=== PATIENT | female | born 1935 | race Hispanic/Latino ===

== ENCOUNTER 2018-07-25 20:53 | Emergency (ER) | payer MEDICARE, OTHER ==
[~2018-07-25] VITALS: Ht 152.4 cm; Wt 63.5 kg
[~2018-07-25 20:53] MED LIST: ADULT LOW DOSE81 MG PO; ADVAIR 500/501 EA INH; ALBUTEROL2.5 MG/3 M INH; ARICEPT5 MG PO; CARBAMAZEPINE200 MG PO; CRESTOR10 MG PO; CYANOCOBAL1000 MCG/M IM; FORADIL12 MCG INH; GABAPENTIN300 MG PO; LEVOTHYROXINE50 MCG PO; NEXIUM40 MG PO; PULMICORT FLEXHA1 EA INH; SINGULAIR10 MG PO; SPIRIVA18 MCG INH; THEO-24300 MG PO
--- OUTSIDE RECORDS SUMMARY | 2018-07-25 20:58 | XMS REPORT | Continuity of Care Document ---
Author Author [facility] Interface Address Unknown Phone Unavailable Problems Problem Status Onset Date Classification Date Reported Comments Source ABD PAIN Active 03/01/2018 [facility] SOB, CHEST PAIN IN ADULT, EPIGASTRIC CIERA Active 03/01/2018 [facility] Discharge Diagnosis: Acute bronchitis, viral 04/20/2017 04/23/2017 [facility] COUGH Active 04/20/2017 [facility] Discharge Diagnosis: Bronchitis 01/01/2015 01/04/2015 [facility] Discharge Diagnosis: Appendicolith 01/01/2015 01/04/2015 [facility] Discharge Diagnosis: Gastritis 01/01/2015 01/04/2015 [facility] Discharge Diagnosis: Dehydration 01/01/2015 01/04/2015 [facility] ASTHMA / SOB Active 11/30/2012 [facility] ASTHMA, SOB, COPD EXAC Active 11/30/2012 [facility] SOB, ASTHMA Active 11/13/2012 [facility] SOB Active 09/21/2012 [facility] DYSPNEA Active 12/20/2010 [facility] ASTHMA, COPD Active 12/20/2010 [facility] 786.3 HEMOPTYSIS// 793.1 LESION OF LUNG // Active 06/16/2009 [facility] MRSA Active 04/27/2004 Problem 12/14/2012 [facility] 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 Problem 04/23/2017 [facility] Asthma Resolved Problem 12/14/2012 [facility] COPD - Chronic obstructive pulmonary disease Active Problem 12/14/2012 [facility] DM - Diabetes mellitus Active Problem 12/14/2012 [facility] Alzheimer's disease Active Problem 04/23/2017 [facility] Asthma Active Problem 04/23/2017 [facility] COPD - Chronic obstructive pulmonary disease Active Problem 04/23/2017 [facility] Diabetes mellitus Active Problem 04/23/2017 [facility] Diabetes Resolved Problem 04/23/2017 [facility] DM - Diabetes mellitus Active Problem 04/23/2017 [facility] Hypercholesterolemia Active Problem 04/23/2017 [facility] Hypertension Active Problem 04/23/2017 [facility] Blood clot Active Problem 01/04/2015 [facility] Diabetes mellitus Resolved Problem 12/14/2012 [facility] Hypercholesterolemia Resolved Problem 12/14/2012 [facility] Hypertension Active Problem 12/14/2012 [facility] ASTHMA NOS Active [facility] SHORTNESS OF BREATH Active [facility] CHEST PAIN, UNSPECIFIED Active [facility] EPIGASTRIC PAIN Active [facility] Medications Medication Details Route Status Patient Instructions Ordering Provider Order Date Source Oseltamivir 75 MG Oral Capsule [Tamiflu] 75 mg, PO, Q12H, X 5 day, # 10 cap, 0 Refill(s) Active 04/21/2017 [facility] Saline Flush 0.9% 10 mL, Route: IVP, Drug Form: INJ, Dosing Weight 60.909, kg, PRN, PRN Line Flush, Start date: 04/20/17 13:38:00 [employer], Duration: 30 day, Stop date: 05/20/17 13:37:00 CSTNotes: (Same as: BD Posiflush) Inactive 04/20/2017 [facility] Azithromycin 5 Day Dose Pack 250 mg oral tablet See Instructions, Take 2 tablets by mouth the first day then 1 tablet by mouth days 2-5., X 5 day, # 6 tab, 0 Refill(s)Special Instructions: Take 2 tablets by mouth the first day then 1 tablet by mouth days 2-5. Active 01/01/2015 [facility] Ondansetron 4 MG Disintegrating Tablet [Zofran] 4 mg=1 tab, PO, BID, PRN Nausea and Vomiting, Dissolve tab under tongue, X 5 day, # 10 tab, 0 Refill(s)Special Instructions: Dissolve tab under tongue Active 01/01/2015 [facility] Aluminum Hydroxide 80 MG/ML / Magnesium Hydroxide 80 MG/ML / Simethicone 8 MG/ML Oral Suspension [Maalox Max] 5 mL, PO, QID-Before Meals, # 150 mL, 0 Refill(s) No Longer Active 01/01/2015 [facility] Dicyclomine Hydrochloride 10 MG Oral Capsule [Bentyl] 10 mg=1 cap, PO, QID-Before Meals, # 14 cap, 0 Refill(s) Active 01/01/2015 [facility] Famotidine 20 MG Oral Tablet [Pepcid] 20 mg=1 tab, PO, BID, # 20 tab, 0 Refill(s) Active 01/01/2015 [facility] Albuterol 0.833 MG/ML / Ipratropium Crandall 0.167 MG/ML Inhalant Solution 3 mL, Route: NEB, Dosing Weight 60.909, kg, ONCE, STAT, Start date: 01/01/15 1:34:00, Stop date: 01/01/15 1:34:00 Inactive 01/01/2015 [facility] Sodium Chloride 0.154 MEQ/ML Injectable Solution 1,000 mL, 1,000 ml/hr, Infuse Over: 1 Hour, Route: IV, ONCE, Priority: STAT, Dosing Weight 60.909 kg, Start date: 01/01/15 1:26:00, Duration: 1 doses or times, Stop date: 01/01/15 1:26:00 Inactive 01/01/2015 [facility] GI cocktail 30 mL, Route: PO, Dosing Weight 60.909, kg, ONCE, STAT, Start date: 12/31/14 20:44:00, Stop date: 12/31/14 20:44:00 Inactive 01/01/2015 [facility] Zofran 4 mg, Route: IVP, Drug form: INJ, ONCE, Dosing Weight 60.909, kg, Priority: STAT, Start date: 12/31/14 20:43:00, Stop date: 12/31/14 20:43:00 Inactive 01/01/2015 [facility] Pepcid 20 mg, Route: IV, ONCE, Dosing Weight 60.909, kg, Start date: 12/31/14 20:38:00, Stop date: 12/31/14 20:38:00 Inactive 01/01/2015 [facility] Sodium Chloride 0.154 MEQ/ML Injectable Solution 1,000 mL, 1,000 ml/hr, Infuse Over: 1 hr, Route: IV, ONCE, Priority: STAT, Dosing Weight 60.909 kg, Start date: 12/31/14 20:36:00, Duration: 1 doses or times, Stop date: 12/31/14 20:36:00 Inactive 01/01/2015 [facility] predniSONE 10 mg, 1 tab, Route: PO, Drug form: TAB, Daily, Dosing Weight 60, kg, Start date: 12/13/12 9:00:00, Duration: 14 day, Stop date: 12/26/12 9:00:00 PO No Longer Active [facility] 12/13/2012 [facility] ciprofloxacin 250 mg, 1 tab, Route: PO, Drug form: TAB, [id number], Dosing Weight 60, kg, Start date: 12/12/12 18:00:00, Duration: 7 day, Stop date: 12/19/12 6:00:00 PO No Longer Active [facility] 12/12/2012 [facility] Cardizem 30 mg, 1 tab, Route: PO, Drug form: TAB, Q8H, Dosing Weight 60, kg, Start date: 12/12/12 16:00:00, Duration: 30 day, Stop date: 01/11/13 8:00:00 PO No Longer Active [facility] 12/12/2012 [facility] predniSONE 10 mg oral tablet 20 mg, 2 tab, PO, Daily, 15 tab, Substitution Allowed, TAB PO Active [facility] 12/12/2012 [facility] pantoprazole 40 mg oral enteric coated tablet 40 mg, 1 tab, PO, Daily, 30 tab, Substitution Allowed, ECTAB PO Active [facility] 12/12/2012 [facility] ciprofloxacin 250 mg oral tablet 250 mg, 1 tab, PO, [id number], 10 tab, Substitution Allowed, TAB PO Active [facility] 12/12/2012 [facility] DuoNeb inhalation solution 3 mL, INHALATION, QID, 120 vial, Substitution Allowed, Maintenance, SOLN INHALATION Active [facility] 12/12/2012 [facility] Remove - lidocaine topical patch 1 patch, Route: MISC, Bedtime, Drug form: ERFILM, Start date: 12/11/12 21:00:00, Duration: 30 day, Stop date: 01/09/13 21:00:00 MISC No Longer Active [facility] 12/12/2012 [facility] Crestor 10 mg, 1 tab, Route: PO, Drug form: TAB, Bedtime, Dosing Weight 60, kg, Start date: 12/11/12 21:00:00, Duration: 30 day, Stop date: 01/09/13 21:00:00 PO No Longer Active [facility] 12/12/2012 [facility] Singulair 10 mg, Route: PO, Drug form: TAB, Bedtime, Dosing Weight 60, kg, Start date: 12/11/12 21:00:00, Duration: 30 day, Stop date: 01/09/13 21:00:00 PO No Longer Active [facility] 12/12/2012 [facility] donepezil 10 mg, 2 tab, Route: PO, Drug form: TAB, Bedtime, Dosing Weight 60, kg, Start date: 08/27/13 21:00:00, Duration: 30 day, Stop date: 01/09/13 21:00:00 PO No Longer Active [facility] 12/12/2012 [facility] Protonix 40 mg, 1 tab, Route: PO, Drug form: ECTAB, BID, Dosing Weight 60, kg, Start date: 12/11/12 17:00:00, Duration: 30 day, Stop date: 01/10/13 9:00:00 PO No Longer Active [facility] 12/11/2012 [facility] benzocaine-menthol topical 1 lozenge, Route: MUCOUS MEM, Drug Form: MANJINDER, Q2H, PRN Sore Throat, Start date: 12/11/12 16:56:00, Duration: 30 day, Stop date: 01/10/13 16:55:00 MUCOUS MEM No Longer Active [facility] 12/11/2012 [facility] Cepacol Lozenge 1 lozenge, Route: MUCOUS MEM, Q2H, Drug form: MANJINDER, PRN Sore Throat, Start date: 12/11/12 16:53:00, Duration: 30 day, Stop date: 01/10/13 16:52:00 MUCOUS MEM No Longer Active [facility] 12/11/2012 [facility] carbamazepine 200 mg, 1 tab, Route: PO, Drug form: TAB, QNoon, Dosing Weight 60, kg, Start date: 12/11/12 12:00:00, Duration: 30 day, Stop date: 01/09/13 12:00:00 PO No Longer Active [facility] 12/11/2012 [facility] Lidoderm 5% topical film (patch) 1 patch, Route: TOP, Daily, Drug form: FILM, Start date: 12/11/12 9:00:00, Duration: 30 day, Stop date: 01/09/13 9:00:00, Remove after 12 hoursRemove after 12 hours TOP No Longer Active [facility] 12/11/2012 [facility] Spiriva 18 mcg inhalation capsule 18 microgram, 1 ea, Route: INHALATION, Drug form: CAP, Daily, Dosing Weight 60, kg, Start date: 12/11/12 9:00:00, Duration: 30 day, Stop date: 01/09/13 9:00:00 INHALATION No Longer Active [facility] 12/11/2012 [facility] Fam-24 300 mg, 1 cap, Route: PO, Drug form: ERCAP, BID, Dosing Weight 60, kg, Start date: 12/11/12 9:00:00, Duration: 30 day, Stop date: 01/09/13 17:00:00 PO No Longer Active [facility] 12/11/2012 [facility] Namenda 10 mg, 2 tab, Route: PO, Drug form: TAB, BID, Dosing Weight 60, kg, Start date: 12/11/12 9:00:00, Duration: 30 day, Stop date: 01/09/13 17:00:00 PO No Longer Active [facility] 12/11/2012 [facility] levothyroxine 0.05 mg, 1 tab, Route: PO, Drug form: TAB, [id number], Dosing Weight 60, kg, Start date: 12/11/12 9:00:00, Duration: 30 day, Stop date: 01/10/13 6:30:00 PO No Longer Active [facility] 12/11/2012 [facility] gabapentin 300 mg oral capsule 300 mg, 1 cap, Route: PO, Drug form: CAP, BID, Dosing Weight 60, kg, Start date: 12/11/12 9:00:00, Duration: 30 day, Stop date: 01/09/13 17:00:00 PO No Longer Active [facility] 12/11/2012 [facility] Foradil Aerolizer 0.5 mg, Route: INHALATION, Drug Form: CAP, Dosing Weight 60, kg, Q12H, Start date: 12/11/12 9:00:00, Duration: 30 day, Stop date: 01/09/13 21:00:00 INHALATION No Longer Active [facility] 12/11/2012 [facility] Advair Diskus 500 mcg-50 mcg inhalation powder 1 puff, Route: INHALATION, Drug Form: AERO, Dosing Weight 60, kg, BID, Start date: 12/11/12 9:00:00, Duration: 30 day, Stop date: 01/09/13 17:00:00 INHALATION No Longer Active [facility] 12/11/2012 [facility] carbamazepine 400 mg, 2 tab, Route: PO, Drug form: TAB, BID, Dosing Weight 60, kg, Start date: 12/11/12 9:00:00, Duration: 30 day, Stop date: 01/09/13 21:00:00 PO No Longer Active [facility] 12/11/2012 [facility] Pulmicort Flexhaler 2 puff, Route: INHALATION, Drug Form: PWDR, Dosing Weight 60, kg, BID, Start date: 12/11/12 9:00:00, Duration: 30 day, Stop date: 01/09/13 17:00:00 INHALATION No Longer Active [facility] 12/11/2012 [facility] aspirin 81 mg tablet, enteric coated 81 mg, 1 tab, Route: PO, Drug form: ECTAB, Daily, Dosing Weight 60, kg, Start date: 12/11/12 9:00:00, Duration: 30 day, Stop date: 01/09/13 9:00:00 PO No Longer Active [facility] 12/11/2012 [facility] Xopenex HFA 2 puff, Route: INHALATION, Drug Form: AERO/A, Dosing Weight 60, kg, Q4H, PRN, Start date: 12/11/12 8:52:00, Duration: 30 day, Stop date: 01/10/13 8:51:00, wheezes INHALATION No Longer Active [facility] 12/11/2012 [facility] Proventil HFA 90 mcg/inh inhalation aerosol with adapter 2 puff, Route: INHALATION, Drug Form: AERO/A, Dosing Weight 60, kg, RQID, PRN Wheezing, Start date: 12/11/12 8:52:00, Duration: 30 day, Stop date: 01/10/13 8:51:00, whhezes INHALATION No Longer Active [facility] 12/11/2012 [facility] insulin aspart 10 unit, 0.1 mL, Route: SUB-Q, Drug form: SOLN, ONCE, Dosing Weight 60, kg, Start date: 12/10/12 17:25:00, Stop date: 12/10/12 17:25:00 SUB-Q No Longer Active [facility] 12/10/2012 [facility] lactulose 10 g/15 mL oral syrup 10 gm, 15 mL, Route: PO, Drug Form: SYRP, Dosing Weight 60, kg, TID, Start date: 12/10/12 13:00:00, Stop date: 12/12/12 9:00:00 PO No Longer Active [facility] 12/10/2012 [facility] Sodium Chloride 0.9% IV 1,000 mL 1,000 mL, Rate: 100 ml/hr, Infuse over: 10 hr, Route: IV, Dosing Weight 60 kg, Total Volume: 1,000, Start date: 12/10/12 10:19:00, Duration: 1 doses or times, Stop date: 12/10/12 20:18:00 IV No Longer Active [facility] 12/10/2012 [facility] methylPREDNISolone SODium SUCCinate 40 mg, 1 mL, Route: IVP, Drug form: INJ, Daily, Dosing Weight 60, kg, Start date: 12/10/12 9:00:00, Duration: 30 day, Stop date: 01/08/13 9:00:00 IVP No Longer Active [facility] 12/10/2012 [facility] Sodium Chloride 0.9% IV IV, 250 ml/hr, ONCE, Start date: 12/10/12 6:55:00, 250 ml IV No Longer Active [facility] 12/10/2012 [facility] lisinopril 20 mg, 1 tab, Route: PO, Drug form: TAB, Daily, Dosing Weight 60, kg, Start date: 12/09/12 9:00:00, Duration: 30 day, Stop date: 01/07/13 9:00:00 PO No Longer Active [facility] 12/09/2012 [facility] Cardizem CD 120 mg, 1 cap, Route: PO, Drug form: ERCAP, Daily, Dosing Weight 60, kg, Start date: 12/08/12 12:25:00, Duration: 30 day, Stop date: 01/07/13 9:00:00 PO No Longer Active [facility] 12/08/2012 [facility] methylPREDNISolone SODium SUCCinate 40 mg, 1 mL, Route: IVP, Drug form: INJ, Q12H, Dosing Weight 60, kg, Start date: 12/07/12 21:00:00, Duration: 30 day, Stop date: 01/06/13 9:00:00 IVP No Longer Active [facility] 12/08/2012 [facility] lisinopril 20 mg, 1 tab, Route: PO, Drug form: TAB, BID, Dosing Weight 60, kg, Start date: 12/07/12 21:00:00, Duration: 30 day, Stop date: 01/06/13 9:00:00 PO No Longer Active [facility] 12/08/2012 [facility] nitroglycerin 0.4 mg sublingual tablet 0.4 mg, 1 tab, Route: SL, Drug form: TAB, Q5Min, PRN Chest Pain, Start date: 12/07/12 20:47:00, Duration: 30 day, Stop date: 01/06/13 20:46:00 SL No Longer Active [facility] 12/08/2012 [facility] atropine 0.5 mg, 5 mL, Route: IVP, Drug form: INJ, PRN, PRN Bradycardia, Start date: 12/07/12 20:46:00, Duration: 30 day, Stop date: 01/06/13 20:45:00 IVP No Longer Active [facility] 12/08/2012 [facility] Protonix 40 mg, 1 tab, Route: PO, Drug form: ECTAB, Before Dinner, Dosing Weight 60, kg, Start date: 12/07/12 16:30:00, Duration: 30 day, Stop date: 01/05/13 16:30:00 PO No Longer Active [facility] 12/07/2012 [facility] Tears Naturale 1 drp, Route: Each Affected Eye, TID, Drug form: SOLN, Start date: 12/07/12 13:00:00, Duration: 30 day, Stop date: 01/06/13 9:00:00 Each Affected Eye No Longer Active [facility] 12/07/2012 [facility] nystatin 100,000 units/mL oral suspension 500,000 unit, 5 mL, Route: S&SPIT, Drug form: SUSP, TID, Dosing Weight 60, kg, Start date: 12/06/12 13:00:00, Duration: 7 day, Stop date: 12/13/12 9:00:00 S&SPIT No Longer Active [facility] 12/06/2012 [facility] Tylenol 650 mg, 2 tab, Route: PO, Drug form: TAB, Q4H, Dosing Weight 60, kg, PRN Fever, Start date: 12/06/12 11:36:00, Duration: 30 day, Stop date: 01/05/13 11:35:00 PO No Longer Active [facility] 12/06/2012 [facility] Spiriva 18 mcg inhalation capsule 1 ea, Route: INHALATION, Drug form: CAP, Daily, Dosing Weight 60, kg, Start date: 12/06/12 9:00:00, Duration: 30 day, Stop date: 01/04/13 9:00:00 INHALATION No Longer Active [facility] 12/06/2012 [facility] methylPREDNISolone 60 mg, 0.96 mL, Route: IV, Drug form: INJ, Q12H, Start date: 12/05/12 21:00:00, Duration: 30 day, Stop date: 01/04/13 9:00:00 IV No Longer Active [facility] 12/06/2012 [facility] lisinopril 10 mg, 1 tab, Route: PO, Drug form: TAB, BID, Dosing Weight 60, kg, Start date: 12/05/12 21:00:00, Duration: 30 day, Stop date: 01/04/13 9:00:00 PO No Longer Active [facility] 12/06/2012 [facility] Advair Diskus 500 mcg-50 mcg inhalation powder 1 inhalation, Route: INHALER, Drug Form: AERO, Dosing Weight 60, kg, BID, Start date: 12/05/12 21:00:00, Duration: 30 day, Stop date: 01/04/13 9:00:00 INHALER No Longer Active [facility] 12/06/2012 [facility] Advair Diskus 250 mcg-50 mcg inhalation powder 1 inhalation, Route: INHALER, Drug Form: AERO, Dosing Weight 60, kg, BID, Start date: 12/05/12 17:00:00, Duration: 30 day, Stop date: 01/04/13 9:00:00 INHALER No Longer Active [facility] 12/05/2012 [facility] aspirin 81 mg tablet, enteric coated 81 mg, 1 tab, Route: PO, Drug form: CHEWTAB, Daily, Dosing Weight 60, kg, Start date: 12/05/12 9:00:00, Duration: 30 day, Stop date: 01/03/13 9:00:00 PO No Longer Active [facility] 12/05/2012 [facility] 1/2 NS 1,000 mL 1,000 mL, Rate: 50 ml/hr, Infuse over: 20 hr, Route: IV, Dosing Weight 60 kg, Total Volume: 1,000, Start date: 12/04/12 9:09:00, Duration: 30 day, Stop date: 01/03/13 9:08:00 IV No Longer Active [facility] 12/04/2012 [facility] insulin aspart 5 unit, 0.05 mL, Route: SUB-Q, Drug form: SOLN, TID-Before Meals, Dosing Weight 60, kg, PRN Blood Glucose Results, Start date: 12/04/12 9:07:00, Duration: 30 day, Stop date: 01/03/13 9:06:00 SUB-Q No Longer Active [facility] 12/04/2012 [facility] Dextrose 50% Syringe 25 gm, 50 mL, Route: IVP, Drug Form: INJ, Dosing Weight 60, kg, PRN, PRN Blood Glucose Results, Start date: 12/04/12 9:07:00, Duration: 30 day, Stop date: 01/03/13 9:06:00 IVP No Longer Active [facility] 12/04/2012 [facility] glucagon 1 mg, Route: IM, Drug form: PDR/INJ, PRN, Dosing Weight 60, kg, PRN Blood Glucose Results, Start date: 12/04/12 9:07:00, Duration: 30 day, Stop date: 01/03/13 9:06:00 IM No Longer Active [facility] 12/04/2012 [facility] lisinopril 5 mg, 1 tab, Route: PO, Drug form: TAB, BID, Dosing Weight 60, kg, Start date: 12/03/12 17:00:00, Duration: 30 day, Stop date: 01/02/13 9:00:00 PO No Longer Active [facility] 12/03/2012 [facility] Neurontin 300 mg, 1 cap, Route: NG, Drug form: CAP, TID, Start date: 12/03/12 13:00:00, Duration: 30 day, Stop date: 01/02/13 9:00:00 NG No Longer Active [facility] 12/03/2012 [facility] morphine Sulfate 2 mg, 1 mL, Route: IV, Drug form: INJ, Q2H, Dosing Weight 60, kg, PRN as needed for pain, Start date: 12/03/12 11:45:00, Duration: 30 day, Stop date: 01/02/13 11:44:00 IV No Longer Active [facility] 12/03/2012 [facility] morphine Sulfate 2 mg, 1 mL, Route: IV, Drug form: INJ, Q2H, Dosing Weight 60, kg, Start date: 12/03/12 10:00:00, Duration: 30 day, Stop date: 01/02/13 8:00:00 IV No Longer Active [facility] 12/03/2012 [facility] lisinopril 5 mg, 1 tab, Route: PO, Drug form: TAB, Daily, Dosing Weight 60, kg, Start date: 12/03/12 9:00:00, Duration: 30 day, Stop date: 01/01/13 9:00:00 PO No Longer Active [facility] 12/03/2012 [facility] Haldol 0.5 mg, 1 tab, Route: PO, Drug form: TAB, QID, Dosing Weight 60, kg, PRN Agitation, Start date: 12/03/12 8:14:00, Duration: 30 day, Stop date: 01/02/13 8:13:00 PO No Longer Active [facility] 12/03/2012 [facility] Stromectol 12 mg, 4 tab, Route: PO, Drug form: TAB, [id number], Start date: 12/02/12 16:00:00, Duration: 2 day, Stop date: 12/03/12 16:00:00 PO No Longer Active [facility] 12/02/2012 [facility] Ativan 2 mg, 1 mL, Route: IV, Drug form: INJ, Q4H, PRN Anxiety, Start date: 12/02/12 15:02:00, Duration: 30 day, Stop date: 01/01/13 15:01:00 IV No Longer Active [facility] 12/02/2012 [facility] Ativan 1 mg, 0.5 mL, Route: IV, Drug form: INJ, Q4H, PRN Anxiety, Start date: 12/02/12 15:00:00, Duration: 30 day, Stop date: 01/01/13 14:59:00 IV No Longer Active [facility] 12/02/2012 [facility] Lasix 60 mg, 6 mL, Route: IV, Drug form: INJ, ONCE, Start date: 12/02/12 14:59:00, Stop date: 12/02/12 14:59:00 IV No Longer Active [facility] 12/02/2012 [facility] D5W 1/2NS + KCL 20mEq/L 1000ml (Premix) 1,000 mL 1,000 mL, Rate: 50 ml/hr, Infuse over: 20 hr, Route: IV, Dosing Weight 60 kg, Total Volume: 1,000, Start date: 12/02/12 14:45:00, Duration: 30 day, Stop date: 01/01/13 14:44:00 IV No Longer Active [facility] 12/02/2012 [facility] methylPREDNISolone 60 mg, 1.5 mL, Route: IV, Drug form: INJ, Q8Hnow, Start date: 12/01/12 20:00:00, Duration: 30 day, Stop date: 12/31/12 12:00:00 IV No Longer Active [facility] 12/02/2012 [facility] pneumococcal 23-valent vaccine 0.5 ml, Route: IM, Drug Form: INJ, Daily, Start date: 12/01/12 9:00:00, Duration: 1 doses or times, Stop date: 12/01/12 9:00:00 IM No Longer Active [facility] 12/01/2012 [facility] Pulmicort Respules 1 mg/2 mL inhalation suspension 0.5 mg, 2 mL, Route: NEB, Drug form: SOLN, RDaily, Dosing Weight 60, kg, Start date: 12/01/12 8:00:00, Duration: 30 day, Stop date: 12/30/12 8:00:00 NEB No Longer Active [facility] 12/01/2012 [facility] Singulair 10 mg, 1 tab, Route: PO, Drug form: TAB, Bedtime, Dosing Weight 60, kg, Start date: 11/30/12 21:00:00, Duration: 30 day, Stop date: 12/29/12 21:00:00 PO No Longer Active [facility] 12/01/2012 [facility] Protonix 40 mg, Route: IVP, Drug form: INJ, Daily, Dosing Weight 60, kg, Patient is NPO, Start date: 11/30/12 21:00:00, Duration: 30 day, Stop date: 12/29/12 21:00:00 IVP No Longer Active [facility] 12/01/2012 [facility] famotidine 20 mg, Route: IVP, Drug form: INJ, Q12H, Dosing Weight 60, kg, Start date: 11/30/12 21:00:00, Duration: 30 day, Stop date: 12/30/12 9:00:00 IVP No Longer Active [facility] 12/01/2012 [facility] fentanyl 1,250 microgram + Sodium Chloride 0.9% (titrate) 250 mL 250 mL, Rate: Titrate., Dosing Weight 60, kg, Route: IV, Total Volume: 250, Duration: 30 day, Stop date: 12/30/12 20:25:00, Replace Every: 24 hr IV No Longer Active [facility] 12/01/2012 [facility] propofol 10 mg/ml (titrate) 100 mL 100 mL, Rate: 10 mcg/kg/min.Titrate to maintain goal RASS score., Dosing Weight 60, kg, Route: IV, Total Volume: 100, Start date: 11/30/12 20:20:00, Duration: 30 day, Stop date: 12/30/12 20:19:00, Replace Every: 24 hr IV No Longer Active [facility] 12/01/2012 [facility] methylPREDNISolone 40 mg, 1 mL, Route: IV, Drug form: INJ, ONCE, Start date: 11/30/12 20:00:00, Stop date: 11/30/12 20:00:00 IV No Longer Active [facility] 12/01/2012 [facility] magnesium sulfate 2 gm, 50 mL, Route: IVPB, Drug form: INJ, ONCE, Dosing Weight 60, kg, Total dose=2 gm, Start date: 11/30/12 19:36:00, Stop date: 11/30/12 19:36:00 IVPB No Longer Active [facility] 12/01/2012 [facility] DuoNeb inhalation solution 3 mL, Route: INHALATION, Drug Form: SOLN, Dosing Weight 60, kg, RQ4H, Start date: 11/30/12 19:00:00, Duration: 30 day, Stop date: 12/30/12 15:00:00 INHALATION No Longer Active [facility] 12/01/2012 [facility] albuterol 0.083% inhalation solution 9.96 mg, 12 mL, Route: INHALATION, Drug form: SOLN, ONCE, Dosing Weight 60, kg, Start date: 11/30/12 18:52:00, Stop date: 11/30/12 18:52:00 INHALATION No Longer Active [facility] 11/30/2012 [facility] DuoNeb inhalation solution 3 ml, Route: INHALATION, Drug Form: SOLN, Dosing Weight 60, kg, PRN, PRN Respiratory Protocol, Start date: 11/30/12 18:51:00, Duration: 30 day, Stop date: 12/30/12 18:50:00 INHALATION No Longer Active [facility] 11/30/2012 [facility] Levaquin 750 mg, 150 mL, Route: IVPB, Drug form: SOLN, [id number], Dosing Weight 60, kg, Start date: 11/30/12 18:00:00, Duration: 30 day, Stop date: 12/29/12 18:00:00 IVPB No Longer Active [facility] 11/30/2012 [facility] SoluMedrol 40 mg, 1 mL, Route: IVP, Drug form: INJ, Q6H, Dosing Weight 60, kg, Start date: 11/30/12 18:00:00, Duration: 30 day, Stop date: 12/30/12 12:00:00 IVP No Longer Active [facility] 11/30/2012 [facility] Sodium Chloride 0.9% IV 1,000 mL 1,000 mL, Rate: 100 ml/hr, Infuse over: 10 hr, Route: IV, Dosing Weight 60 kg, Total Volume: 1,000, Start date: 11/30/12 17:47:00, Duration: 30 day, Stop date: 12/30/12 17:46:00 IV No Longer Active [facility] 11/30/2012 [facility] Peridex 0.12% topical liquid 15 ml, Route: S&SPIT, BID, Drug form: LIQ, Start date: 11/30/12 17:00:00, Duration: 30 day, Stop date: 12/30/12 9:00:00 S&SPIT No Longer Active [facility] 11/30/2012 [facility] Versed 50 mg in NS 50 ml (titrate) IV 50 mg 50 mg, 50 mL, Rate: Titrate as directed (RASS score -2), Dosing Weight 60, kg, Route: IV, Total Volume: 50 ml, Duration: 30 day, Stop date: 12/30/12 15:59:00, Replace Every: 24 hr IV No Longer Active [facility] 11/30/2012 [facility] Lovenox 40 mg, 0.4 mL, Route: SUB-Q, Drug form: INJ, [id number], Dosing Weight 60, kg, Start date: 11/30/12 16:00:00, Duration: 30 day, Stop date: 12/29/12 16:00:00 SUB-Q No Longer Active [facility] 11/30/2012 [facility] [facility] Protonix 40 mg, Route: PO, Daily, Dosing Weight 60, kg, Priority: NOW, Start date: 11/30/12 15:59:00, Duration: 30 day, Stop date: 12/30/12 9:00:00 PO No Longer Active [facility] 11/30/2012 [facility] magnesium sulfate 1 gm, 50 mL, Route: IVPB, Drug form: INJ, ONCE, Dosing Weight 60, kg, Total dose=2 gm, Start date: 11/30/12 15:57:00, Duration: 1 doses or times, Stop date: 11/30/12 15:57:00 IVPB No Longer Active [facility] 11/30/2012 [facility] Sodium Chloride 0.9% (Bolus) IV 1000 mL 1,000 mL, Rate: 1,000 ml/hr, Infuse over: 1 hr, Route: IV, Dosing Weight 60 kg, Total Volume: 1,000, Priority: STAT, Start date: 11/30/12 15:57:00, Duration: 1 doses or times, Stop date: 11/30/12 16:56:00, Bolus DoseBolus Dose IV No Longer Active [facility] 11/30/2012 [facility] Versed 2 mg, Route: IVP, ONCE, Dosing Weight 60, kg, Start date: 11/30/12 15:54:00, Stop date: 11/30/12 15:54:00 IVP No Longer Active [facility] 11/30/2012 [facility] fentanyl 1,250 microgram + Sodium Chloride 0.9% (titrate) 250 mL 250 mL, Rate: Titrate, Dosing Weight 60, kg, Route: IV, Total Volume: 250, Duration: 30 day, Stop date: 12/30/12 14:45:00, Replace Every: 24 hr IV No Longer Active [facility] 11/30/2012 [facility] Ativan 0.5 mg, Route: IV, ONCE, Dosing Weight 60, kg, Start date: 11/30/12 14:03:00, Stop date: 11/30/12 14:03:00 IV No Longer Active [facility] 11/30/2012 [facility] Singulair 10 mg oral tablet 10 mg, 1 tab, PO, Bedtime, 30 tab, Substitution Allowed, TAB PO Active [facility] 11/30/2012 [facility] donepezil 10 mg oral tablet 10 mg, 1 tab, PO, Bedtime, 30 tab, Substitution Allowed, TAB PO Active [facility] 11/30/2012 [facility] Namenda 10 mg oral tablet 10 mg, 1 tab, PO, BID, 60 tab, Substitution Allowed, TAB PO Active [facility] 11/30/2012 [facility] propofol 10 mg/ml (titrate) 1,000 mg IV, Start date: 11/30/12 13:19:00, Duration: 30, 100 ml, 60 IV No Longer Active [facility] 11/30/2012 [facility] fentanyl 1,250 microgram IV, Start date: 11/30/12 13:18:00, Duration: 30, 250 ml, 60 IV No Longer Active [facility] 11/30/2012 [facility] fentanyl 1,250 microgram + Sodium Chloride 0.9% (titrate) 250 mL 250 mL, Rate: Titrate to RASS -2, Dosing Weight 60, kg, Route: IV, Total Volume: 250, Duration: 30 day, Stop date: 12/30/12 12:59:00, Replace Every: 24 hr IV No Longer Active [facility] 11/30/2012 [facility] etomidate 20 mg, Route: IVP, ONCE, Dosing Weight 60, kg, Priority: STAT, Start date: 11/30/12 12:58:00, Stop date: 11/30/12 12:58:00 IVP No Longer Active [facility] 11/30/2012 [facility] succinylcholine 100 mg, Route: IVP, ONCE, Dosing Weight 60, kg, Priority: STAT, Start date: 11/30/12 12:58:00, Stop date: 11/30/12 12:58:00 IVP No Longer Active [facility] 11/30/2012 [facility] Levaquin 750 mg, 150 mL, Route: IV, Drug form: SOLN, ONCE, Dosing Weight 60, kg, Start date: 11/30/12 12:52:00, Stop date: 11/30/12 12:52:00 IV No Longer Active I[facility] 11/30/2012 [facility] methylPREDNISolone SODium SUCCinate 125 mg, Route: IVP, ONCE, Dosing Weight 60, kg, Priority: STAT, Start date: 11/30/12 12:04:00, Stop date: 11/30/12 12:04:00 IVP No Longer Active [facility] 11/30/2012 [facility] Saline Flush 0.9% 5 mL, Route: IVP, Drug Form: INJ, Dosing Weight 60, kg, PRN, PRN Line Flush, Start date: 11/30/12 12:04:00, Duration: 30 day, Stop date: 12/30/12 12:03:00 IVP No Longer Active [facility] 11/30/2012 [facility] DuoNeb inhalation solution 3 ml, Route: INHALATION, Drug Form: SOLN, Dosing Weight 60, kg, ONCE, PRN Respiratory Protocol, Start date: 11/30/12 11:54:00, Stop date: 12/30/12 11:53:00 INHALATION No Longer Active [facility] 11/30/2012 [facility] predniSONE 20 mg oral tablet 40 mg, 2 tab, PO, Daily, Take 3 tablets for 60 mg dose, 10 tab, Substitution AllowedTake 3 tablets for 60 mg dose PO Active [facility] 11/14/2012 [facility] Proventil HFA 90 mcg/inh inhalation aerosol with adapter 2 puff, INHALATION, QID, PRN, 25 gm, for wheezing, Substitution Allowed, Maintenance, AERO INHALATION Active [facility] 11/14/2012 [facility] Xopenex 1.25 mg, Route: NEB, ONCE, Dosing Weight 60.909, kg, Start date: 11/13/12 20:44:00, Stop date: 11/13/12 20:44:00 NEB No Longer Active [facility] 11/14/2012 [facility] DuoNeb inhalation solution 3 ml, Route: INHALATION, Drug Form: SOLN, Dosing Weight 60.909, kg, PRN, PRN Respiratory Protocol, Start date: 11/13/12 20:44:00, Duration: 30 day, Stop date: 12/13/12 20:43:00 INHALATION No Longer Active [facility] 11/14/2012 [facility] albuterol-ipratropium 2.5-0.5 mg inhalation solution 6 mL, Route: NEB, Drug Form: SOLN, Dosing Weight 60.909, kg, ONCE, STAT, Start date: 11/13/12 19:46:00, Stop date: 11/13/12 19:46:00 NEB No Longer Active [facility] 11/14/2012 [facility] methylPREDNISolone SODium SUCCinate 125 mg, Route: IVP, ONCE, Dosing Weight 60.909, kg, Priority: STAT, Start date: 11/13/12 19:46:00, Stop date: 11/13/12 19:46:00 IVP No Longer Active [facility] 11/14/2012 [facility] Saline Flush 0.9% 5 mL, Route: IVP, Drug Form: INJ, Dosing Weight 60.909, kg, PRN, PRN Line Flush, Start date: 11/13/12 19:46:00, Duration: 30 day, Stop date: 12/13/12 19:45:00 IVP No Longer Active [facility] 11/14/2012 [facility] albuterol 90 mcg/inh inhalation aerosol 2 puffs, INHALATION, QID, PRN, 1 unit, wheezing, Substitution Allowed, Maintenance INHALATION Active [facility] 09/21/2012 [facility] predniSONE 20 mg oral tablet 60 mg, 3 tab, PO, Daily, Take 3 tablets for 60 mg dose, 15 tab, Substitution AllowedTake 3 tablets for 60 mg dose PO Active [facility] 09/21/2012 [facility] albuterol 0.083% inhalation solution 2.49 mg, Route: NEB, Drug form: SOLN, ONCE, Dosing Weight 60, kg, Priority: STAT, Start date: 09/21/12 9:55:00, Stop date: 09/21/12 9:55:00 NEB No Longer Active [facility] 09/21/2012 [facility] DuoNeb inhalation solution 3 ml, Route: INHALATION, Drug Form: SOLN, Dosing Weight 60, kg, PRN, PRN Respiratory Protocol, Start date: 09/21/12 9:54:00, Duration: 30 day, Stop date: 10/21/12 9:53:00 INHALATION No Longer Active [facility] 09/21/2012 [facility] methylPREDNISolone 125 mg, Route: IVP, ONCE, Dosing Weight 60, kg, Priority: STAT, Start date: 09/21/12 8:52:00, Stop date: 09/21/12 8:52:00 IVP No Longer Active [facility] 09/21/2012 [facility] DuoNeb inhalation solution 3 ml, Route: INHALATION, Drug Form: SOLN, Dosing Weight 60, kg, PRN, PRN Respiratory Protocol, Start date: 09/21/12 8:52:00, Duration: 30 day, Stop date: 10/21/12 8:51:00 INHALATION No Longer Active [facility] 09/21/2012 [facility] DuoNeb inhalation solution 3 ml, Route: INHALATION, Drug Form: SOLN, Dosing Weight 60, kg, PRN, PRN Respiratory Protocol, Start date: 09/21/12 8:31:00, Duration: 30 day, Stop date: 10/21/12 8:30:00 INHALATION No Longer Active [facility] 09/21/2012 [facility] Allergies, Adverse Reactions, Alerts Substance Category Reaction Severity Reaction type Status Date Reported Comments Source Immunizations Immunization Date Given Site Status Last Updated Comments Source pneumococcal 23-valent vaccine 12/01/2012 Right deltoid completed [facility] pneumococcal 23-valent vaccine 12/01/2012 completed [facility] Results Order Name Results Value Reference Range Date Interpretation Comments Source Abdomen complete US Abdomen complete US Clinical Indication: - PAtient with ongoing abdominal pain, please evaluate; Comparison: Abdominal pelvic CT on 12/31/2014. TECHNIQUE: Grayscale and limited color sonographic evaluation of the abdomen was performed with standard technique. FINDINGS: LIVER: The visualized liver shows normal contour, size, and morphology with normal parenchymal echo texture. The liver measures 14 cm. Limited visualized portal vein is grossly patent. BILE DUCTS: The intrahepatic and extrahepatic bile ducts are not dilated with the common bile duct measuring 3.8 mm. The distal common bile duct is not well seen. GALLBLADDER: There are no definite gallstones, gallbladder sludge, pericholecystic fluid or wall thickening. The gallbladder is contracted. PANCREAS: The visualized pancreas appears unremarkable.. SPLEEN: The spleen is unremarkable and measures 5.5 x 2.4 x 1.5 cm. KIDNEY: The right kidney measures 10.0 x 4.5 x 4.8 cm. The left kidney measures 10.8 x 5.0 x 4.8 cm. There is normal renal contour and morphology, with normal parenchymal echotexture. There is no hydronephrosis. There is a 1.2 x 1.2 x 1.1 cm simple cyst within the left kidney. AORTA AND INFERIOR VENA CAVA: Visualized portions appear unremarkable. ASCITES: There is no right abdominal ascites. IMPRESSION: 1. Small left simple renal cyst. 2. Contracted gallbladder which limits evaluation of the gallbladder. No definite gallstones. 3. Otherwise unremarkable abdominal ultrasound. VINEET: JAMEEL 03/02/2018 - - Read by: Liang Weston MD Dictated Date/time: 03/02/18 14:43 Electronically Signed by: Liang Weston MD 03/02/18 14:51 FINAL REPORT [facility] Chest 1view DX Chest 1view DX Clinical Indication: - cp Comparison: None FINDINGS: AP chest radiograph was obtained. MEDIASTINUM: The cardiac silhouette is normal in size. The aorta demonstrates atherosclerotic calcification. LUNGS: Lung volumes are maintained. There are no focal infiltrates or effusions. There are no pneumothoraces noted. BONES: There is hypertrophic change and joint space narrowing with subchondral sclerosis and geode formation involving the bilateral shoulders. IMPRESSION: No acute infiltrates or effusions. SL: [id number] 03/02/2018 - - Read by: Gus Holder MD Dictated Date/time: 03/02/18 00:47 Electronically Signed by: Gus Holder MD 03/02/18 00:48 FINAL REPORT [facility] CARDIAC ENZYMES CK MB Index 0.6 0.0 - 2.5 04/20/2017 [facility] CARDIAC ENZYMES CK MB 0.6 ng/mL 0.5 - 3.6 04/20/2017 [facility] CARDIAC ENZYMES Total CK 103 unit/L 12 - 191 04/20/2017 [facility] CARDIAC ENZYMES Troponin-I null 0.00 - 0.40 04/20/2017 [facility] ELECTROLYTES Potassium Lvl 4.0 meq/L 3.5 - 5.1 04/20/2017 [facility] ELECTROLYTES Glucose Lvl 107 mg/dL 70 - 99 04/20/2017 [facility] ELECTROLYTES BUN 8 mg/dL 7 - 22 04/20/2017 [facility] ELECTROLYTES Sodium Lvl 136 meq/L 135 - 145 04/20/2017 [facility] ELECTROLYTES Creatinine Lvl 0.56 mg/dL 0.50 - 1.40 04/20/2017 [facility] ELECTROLYTES Total Protein 7.9 g/dL 6.4 - 8.4 04/20/2017 [facility] ELECTROLYTES Calcium Lvl 8.0 mg/dL 8.5 - 10.5 04/20/2017 [facility] ELECTROLYTES Alk Phos 77 unit/L 39 - 136 04/20/2017 [facility] ELECTROLYTES Bili Total 0.4 mg/dL 0.2 - 1.3 04/20/2017 [facility] ELECTROLYTES AST 38 unit/L 0 - 37 04/20/2017 [facility] ELECTROLYTES AGAP 13.0 meq/L 10.0 - 20.0 04/20/2017 [facility] ELECTROLYTES B/C Ratio 14 6 - 25 04/20/2017 [facility] ELECTROLYTES Chloride Lvl 99 meq/L 95 - 109 04/20/2017 [facility] ELECTROLYTES CO2 28 meq/L 24 - 32 04/20/2017 [facility] ELECTROLYTES Albumin Lvl 3.6 g/dL 3.5 - 5.0 04/20/2017 [facility] ELECTROLYTES A/G Ratio 0.8 0.7 - 1.6 04/20/2017 [facility] ELECTROLYTES ALT 23 unit/L 0 - 65 04/20/2017 [facility] ELECTROLYTES Globulin 4.3 g/dL 2.7 - 4.2 04/20/2017 [facility] ELECTROLYTES eGFR 89 mL/min/1.73m2 04/20/2017 Result Comment: The eGFR is calculated using the CKD-EPI formula. In most young, healthy individuals the eGFR will be >90 mL/min/1.73m2. The eGFR declines with age. An eGFR of 60-89 may be normal in some populations, particularly the elderly, for whom the CKD-EPI formula has not been extensively validated. Use of the eGFR is not recommended in the following populations: Individuals with unstable creatinine concentrations, including patients and those with serious co-morbid conditions. Patients with extremes in muscle mass or diet. The data above are obtained from the National Kidney Disease Education Program (NKDEP) which additionally recommends that when the eGFR is used in patients with extremes of body mass index for purposes of drug dosing, the eGFR should be multiplied by the estimated BMI. [facility] Platelet 167 K/CMM 133 - 450 04/20/2017 [facility] RDW 13.7 % 11.5 - 14.5 04/20/2017 [facility] MPV 7.2 fL 7.4 - 10.4 04/20/2017 [facility] MCHC 34.3 g/dL 32.0 - 36.0 04/20/2017 [facility] MCH 34.2 pg 27.0 - 31.0 04/20/2017 [facility] MCV 99.8 fL 80.0 - 98.0 04/20/2017 [facility] Hgb 12.6 g/dL 12.0 - 16.0 04/20/2017 [facility] Hct 36.7 % 36.0 - 48.0 04/20/2017 [facility] RBC 3.68 M/CMM 4.20 - 5.40 04/20/2017 [facility] WBC 7.9 K/CMM 3.7 - 10.4 04/20/2017 [facility] HEMATOLOGY Lymphocytes 10.5 % 20.0 - 40.0 04/20/2017 [facility] HEMATOLOGY Monocytes 8.5 % 2.0 - 12.0 04/20/2017 [facility] HEMATOLOGY Eosinophils 0.8 % 0.0 - 4.0 04/20/2017 [facility] HEMATOLOGY Basophils 0.6 % 0.0 - 1.0 04/20/2017 [facility] HEMATOLOGY Segs 79.6 % 45.0 - 75.0 04/20/2017 [facility] Segs-Bands # 6.3 K/CMM 1.5 - 8.1 04/20/2017 [facility] HEMATOLOGY Lymphocytes # 0.8 K/CMM 1.0 - 5.5 04/20/2017 [facility] HEMATOLOGY Monocytes # 0.7 K/CMM 0.0 - 0.8 04/20/2017 [facility] Eosinophils # 0.1 K/CMM 0.0 - 0.5 04/20/2017 [facility] Macrocyte 1+ *ABN* (04/20/17 1:51 PM) None Seen 04/20/2017 [facility] Chest 1view DX Chest 1view DX Clinical indication: - SOB Comparison: Chest 1 view 01/01/2015 TECHNIQUE: AP chest FINDINGS: Lines, tubes and hardware: None. Lungs and pleura: Lungs are clear. No appreciable pleural effusion or pneumothorax. Heart and mediastinum: The cardiomediastinal silhouette is normal in size with a tortuous, ectatic thoracic aorta. Bones: Severe degenerative changes are present in the bilateral shoulders with humeral head remodeling. IMPRESSION: No acute cardiopulmonary abnormality. SL: [id number] 04/20/2017 - - Read by: Kiley Garduno MD Dictated Date/time: 04/20/17 14:50 Electronically Signed by: Kiley Garduon MD 04/20/17 14:51 FINAL REPORT [facility] URINE AND STOOL UA Urobilinogen <=1.0 mg/dL 0.1 - 1.0 01/01/2015 [facility] URINE AND STOOL UA Glucose Negative mg/dL Negative mg/dL 01/01/2015 [facility] URINE AND STOOL UA pH 5.0 5.0 - 8.0 01/01/2015 [facility] URINE AND STOOL UA Spec Grav 1.032 <=1.030 01/01/2015 [facility] URINE AND STOOL UA Turbidity Clear (9/16/15 9:14 PM) Clear 01/01/2015 [facility] URINE AND STOOL UA Color Yellow *NA* (12/31/14 9:14 PM) Yellow 01/01/2015 [facility] URINE AND STOOL UA Blood Negative (12/31/14 9:14 PM) Negative 01/01/2015 [facility] URINE AND STOOL UA Bili Negative *NA* (12/31/14 9:14 PM) Negative 01/01/2015 [facility] URINE AND STOOL UA Ketones Negative mg/dL Negative mg/dL 01/01/2015 [facility] URINE AND STOOL UA Protein Negative mg/dL Negative mg/dL 01/01/2015 [facility] URINE AND STOOL UA Sq Epi Few /LPF Few /LPF 01/01/2015 [facility] URINE AND STOOL UA RBC 2 /HPF 0 - 2 01/01/2015 [facility] URINE AND STOOL UA WBC 5 /HPF 0 - 5 01/01/2015 [facility] URINE AND STOOL UA Mucus Many /LPF None Seen /LPF 01/01/2015 [facility] URINE AND STOOL UA Leuk Est Small *ABN* (12/31/14 9:14 PM) Negative 01/01/2015 [facility] URINE AND STOOL UA Nitrite Negative (12/31/14 9:14 PM) Negative 01/01/2015 [facility] URINE AND STOOL UA Hyal Cast 5 /LPF 0 - 2 01/01/2015 [facility] Chest 1view DX Chest 1view DX Portable one view AP chest, Jan 01, 2015 01:42:00 AM CLINICAL HISTORY: Coughing ; See Clinic Indication TECHNIQUE: Routine AP view of the chest was obtained. COMPARISON: Chest radiographs yesterday and November 2012 FINDINGS: Lungs are hyperinflated, but clear. No pleural effusion or radiographically detectable pneumothorax is present. Cardiomediastinal silhouette is unchanged. Small to moderate hiatal hernia may be present. Bones are unchanged, with moderate bilaterally minimal joint degenerative changes with sclerosis and remodeling. IMPRESSION: No acute abnormality of the chest. Emphysematous changes. Possible small to moderate hiatal hernia. SL: 14 01/01/2015 - - Read by: Kathi Ruth MD Dictated Date/time: 01/01/15 02:06 Electronically Signed by: Kathi Ruth MD 01/01/15 02:07 FINAL REPORT [facility] CARDIAC ENZYMES Troponin-I null 0.00 - 0.40 12/31/2014 [facility] CHEM PANEL Lipase Lvl 153 unit/L 73 - 393 12/31/2014 [facility] CHEM PANEL Lactic Acid Lvl 2.0 mMol/L 0.5 - 2.2 12/31/2014 [facility] CHEM PANEL A/G Ratio 0.8 0.7 - 1.6 12/31/2014 [facility] CHEM PANEL Globulin 4.3 g/dL 2.0 - 4.0 12/31/2014 [facility] CHEM PANEL B/C Ratio 26 6 - 25 12/31/2014 [facility] CHEM PANEL AGAP 9.6 meq/L 10.0 - 20.0 12/31/2014 [facility] CHEM PANEL Calcium Lvl 8.2 mg/dL 8.5 - 10.5 12/31/2014 [facility] CHEM PANEL Sodium Lvl 141 meq/L 135 - 145 12/31/2014 [facility] CHEM PANEL Chloride Lvl 108 meq/L 95 - 109 12/31/2014 [facility] CHEM PANEL Potassium Lvl 3.6 meq/L 3.5 - 5.1 12/31/2014 [facility] CHEM PANEL eGFR 71 mL/min/1.73m2 12/31/2014 Result Comment: The eGFR is calculated using the CKD-EPI formula. In most young, healthy individuals the eGFR will be >90 mL/min/1.73m2. The eGFR declines with age. An eGFR of 60-89 may be normal in some populations, particularly the elderly, for whom the CKD-EPI formula has not been extensively validated. Use of the eGFR is not recommended in the following populations: Individuals with unstable creatinine concentrations, including patients and those with serious co-morbid conditions. Patients with extremes in muscle mass or diet. The data above are obtained from the National Kidney Disease Education Program (NKDEP) which additionally recommends that when the eGFR is used in patients with extremes of body mass index for purposes of drug dosing, the eGFR should be multiplied by the estimated BMI. [facility] CHEM PANEL AST 33 unit/L 0 - 37 12/31/2014 [facility] CHEM PANEL Bili Total 0.4 mg/dL 0.2 - 1.3 12/31/2014 [facility] CHEM PANEL Alk Phos 99 unit/L 39 - 136 12/31/2014 [facility] CHEM PANEL ALT 30 unit/L 0 - 65 12/31/2014 [facility] CHEM PANEL Albumin Lvl 3.6 g/dL 3.5 - 5.0 12/31/2014 [facility] CHEM PANEL Total Protein 7.9 g/dL 6.4 - 8.4 12/31/2014 [facility] CHEM PANEL CO2 27 meq/L 24 - 32 12/31/2014 [facility] CHEM PANEL Creatinine Lvl 0.8 mg/dL 0.5 - 1.4 12/31/2014 [facility] CHEM PANEL BUN 21 mg/dL 7 - 22 12/31/2014 [facility] CHEM PANEL Glucose Lvl 137 mg/dL 70 - 99 12/31/2014 [facility] HEMATOLOGY Lymphocytes # 0.5 K/CMM 1.0 - 5.5 12/31/2014 [facility] HEMATOLOGY Eosinophils # 0.2 K/CMM 0.0 - 0.5 12/31/2014 [facility] HEMATOLOGY Monocytes # 0.6 K/CMM 0.0 - 0.8 12/31/2014 [facility] HEMATOLOGY Segs-Bands # 8.9 K/CMM 1.5 - 8.1 12/31/2014 [facility] HEMATOLOGY Basophils 0.3 % 0.0 - 1.0 12/31/2014 [facility] HEMATOLOGY Monocytes 6.0 % 2.0 - 12.0 12/31/2014 [facility] HEMATOLOGY Lymphocytes 4.7 % 20.0 - 40.0 12/31/2014 [facility] HEMATOLOGY Segs 87.3 % 45.0 - 75.0 12/31/2014 [facility] HEMATOLOGY Eosinophils 1.7 % 0.0 - 4.0 12/31/2014 [facility] HEMATOLOGY PTT 31.5 s 22.9 - 35.8 12/31/2014 [facility] HEMATOLOGY INR 1.70 0.85 - 1.17 12/31/2014 [facility] HEMATOLOGY PT 20.3 s 12.0 - 14.7 12/31/2014 [facility] HEMATOLOGY MCHC 33.3 g/dL 32.0 - 36.0 12/31/2014 [facility] HEMATOLOGY Platelet 202 K/CMM 133 - 450 12/31/2014 [facility] HEMATOLOGY RDW 13.0 % 11.5 - 14.5 12/31/2014 [facility] HEMATOLOGY MCH 31.6 pg 27.0 - 31.0 12/31/2014 [facility] HEMATOLOGY MCV 95.1 fL 80.0 - 98.0 12/31/2014 [facility] HEMATOLOGY WBC 10.2 K/CMM 3.7 - 10.4 12/31/2014 [facility] HEMATOLOGY Hgb 12.7 g/dL 12.0 - 16.0 12/31/2014 [facility] RBC 4.02 M/CMM 4.20 - 5.40 12/31/2014 [facility] Hct 38.2 % 36.0 - 48.0 12/31/2014 [facility] MPV 6.6 fL 7.4 - 10.4 12/31/2014 [facility] Abdomen acute series w chest 1 view DX Abdomen acute series w chest 1 view DX ABDOMINAL RADIOGRAPH 3 VIEWS INDICATION: Acute abdominal pain, nausea, vomiting, diarrhea COMPARISON: Chest radiograph 12/05/2012 IMPRESSION: 1. There is mild to moderate hiatal hernia. A retrocardiac air-fluid level is noted. Otherwise, no acute intrathoracic abnormalities are visualized. 2. There is no bowel dilatation or evidence of pneumoperitoneum. 3. No potential cholelithiasis or urolithiasis are seen. SL: 16 12/31/2014 - - Read by: José Stoll MD Dictated Date/time: 12/31/14 19:37 Electronically Signed by: José Stoll MD 12/31/14 19:39 FINAL REPORT [facility] Abdomen/Pelvis w IV contrast CT Abdomen/Pelvis w IV contrast CT CT SCAN OF THE ABDOMEN AND PELVIS WITH CONTRAST. HX: Abdominal pain, acute COMPARISON: None Technique: Helical CT images from domes of the diaphragms to symphysis pubis following oral and 100 cc Omnipaque nonionic iodinated intravenous contrast. Dose: NKF=2338 mGy-cm. ABDOMEN: There is a moderate hiatal hernia measuring approximately 5.3 cm in diameter. The lung bases are clear. The liver, spleen, pancreas, adrenal glands and kidneys are unremarkable. The bowel is normal in course and caliber. The gallbladder is within normal limits. The appendix is remarkable for a calculus at the junction of the appendix and cecum. The remainder the appendix is within normal limits of size with no evidence of inflammation. Some diverticulosis is present in the descending colon. There is no evidence of hernia or obstruction. Some simple cysts are present in the kidneys bilaterally. 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 ABDOMEN CONCLUSION: 1. Appendicolith at the junction of the appendix and cecum without other evidence of appendiceal inflammation. Appendicolith measures approximately 9 mm in maximum diameter. 2. Hiatal hernia. 3. Diverticulosis of the distal descending colon. 4. 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 PELVIS: The bladder contour is smooth. There is no evidence of free fluid in the pelvis. The visualized osseous structures are grossly normal. No hernia is identified. There is extensive diverticulosis in the sigmoid colon. The uterus is deviated slightly to the left of midline and is atrophic. PELVIS CONCLUSION: Sigmoid diverticulosis. SL: 12 12/31/2014 - - Read by: Elier Mendez MD Dictated Date/time: 12/31/14 22:00 Electronically Signed by: Elier Mendez MD 12/31/14 22:05 FINAL REPORT [facility] BEDSIDE GLUCOSE TESTING Gluc POC Lifscn 287 mg/dL 70 - 99 12/12/2012 HI 2Interpretive Data: Upper Reportable Limit: 200 mg/dL. [facility] CHEMISTRY Chloride Lvl 103 meq/L 95 - 109 12/12/2012 Normal [facility] CHEMISTRY Potassium Lvl 3.5 meq/L 3.5 - 5.1 12/12/2012 Normal [facility] CHEMISTRY Sodium Lvl 140 meq/L 135 - 145 12/12/2012 Normal [facility] CHEMISTRY eGFR 85 mL/min/1.73m2 12/12/2012 NA 6Result Comment: The eGFR is calculated using the CKD-EPI formula. In most young, healthy individuals the eGFR will be >90 mL/min/1.73m2. The eGFR declines with age. An eGFR of 60-89 may be normal in some populations, particularly the elderly, for whom the CKD-EPI formula has not been extensively validated. Use of the eGFR is not recommended in the following populations: Individuals with unstable creatinine concentrations, including patients and those with serious co-morbid conditions. Patients with extremes in muscle mass or diet. The data above are obtained from the National Kidney Disease Education Program (NKDEP) which additionally recommends that when the eGFR is used in patients with extremes of body mass index for purposes of drug dosing, the eGFR should be multiplied by the estimated BMI. [facility] CHEMISTRY Creatinine Lvl 0.7 mg/dL 0.5 - 1.4 12/12/2012 Normal [facility] CHEMISTRY CO2 26 meq/L 24 - 32 12/12/2012 Normal [facility] CHEMISTRY Calcium Lvl 8.2 mg/dL 8.5 - 10.5 12/12/2012 LOW [facility] CHEMISTRY Glucose Lvl 263 mg/dL 70 - 99 12/12/2012 [place] 9Interpretive Data: Adult reference range values reflect the clinical guidelines of the [place] [employer]. [facility] CHEMISTRY BUN 20 mg/dL 7 - 22 12/12/2012 Normal [facility] CHEMISTRY AGAP 14.5 meq/L 10.0 - 20.0 12/12/2012 Normal [facility] CHEMISTRY Theoph Lvl 18.5 ug/ml 10.0 - 20.0 12/12/2012 Normal [facility] HEMATOLOGY MPV 7.1 fL 7.4 - 10.4 12/12/2012 LOW [facility] HEMATOLOGY Platelet 197 K/CMM 133 - 450 12/12/2012 Normal [facility] HEMATOLOGY MCHC 32.3 g/dL 32.0 - 36.0 12/12/2012 Normal [facility] HEMATOLOGY MCH 29.3 pg 27.0 - 31.0 12/12/2012 Normal [facility] HEMATOLOGY MCV 90.8 fL 81.0 - 99.0 12/12/2012 Normal [facility] HEMATOLOGY RDW 16.3 % 11.5 - 14.5 12/12/2012 [facility] [place] HEMATOLOGY WBC 10.5 K/CMM 3.7 - 10.4 12/12/2012 [facility] [place] HEMATOLOGY Hgb 9.8 g/dL 12.0 - 16.0 12/12/2012 [facility] HEMATOLOGY RBC 3.36 M/CMM 4.20 - 5.40 12/12/2012 [facility] HEMATOLOGY Hct 30.5 % 36.0 - 48.0 12/12/2012 [facility] HEMATOLOGY Basophils # 0.0 K/CMM 0.0 - 0.2 12/12/2012 Normal [facility] HEMATOLOGY Eosinophils # 0.0 K/CMM 0.0 - 0.5 12/12/2012 Normal [facility] HEMATOLOGY Monocytes # 0.4 K/CMM 0.0 - 0.8 12/12/2012 Normal [facility] HEMATOLOGY Monocytes 3.4 % 2.0 - 12.0 12/12/2012 Normal [facility] HEMATOLOGY Eosinophils 0.0 % 0.0 - 4.0 12/12/2012 Normal [facility] HEMATOLOGY Basophils 0.1 % 0.0 - 1.0 12/12/2012 Normal [facility] HEMATOLOGY Lymphocytes # 0.4 K/CMM 1.0 - 5.5 12/12/2012 [facility] HEMATOLOGY Segs-Bands # 9.7 K/CMM 1.5 - 8.1 12/12/2012 [facility] [place] HEMATOLOGY Plt Morph Normal (12/12/2012 11:27:00) 12/12/2012 Normal [facility] HEMATOLOGY Segs 93.0 % 45.0 - 75.0 12/12/2012 [facility] [place] HEMATOLOGY Lymphocytes 3.5 % 20.0 - 40.0 12/12/2012 LOW [facility] HEMATOLOGY RBC Morph Normal (12/12/2012 11:27:00) 12/12/2012 Normal [facility] BEDSIDE GLUCOSE TESTING Gluc POC Lifscn 156 mg/dL 70 - 99 12/12/2012 [place] 3Interpretive Data: Upper Reportable Limit: 200 mg/dL. [facility] BEDSIDE GLUCOSE TESTING Gluc POC Lifscn 234 mg/dL 70 - 99 12/12/2012 [place] 4Interpretive Data: Upper Reportable Limit: 200 mg/dL. [facility] BEDSIDE GLUCOSE TESTING Comment1 Notify RN/ 12/12/2012 NA [facility] BEDSIDE GLUCOSE TESTING Comment1 Assess patient 12/11/2012 [facility] BEDSIDE GLUCOSE TESTING Comment2 Notify RN/ 12/11/2012 [facility] BEDSIDE GLUCOSE TESTING Comment2 Notify RN/ 12/11/2012 NA [facility] BEDSIDE GLUCOSE TESTING Comment1 Assess patient 12/11/2012 [facility] BEDSIDE GLUCOSE TESTING Comment2 Notify RN/ 12/11/2012 [facility] CHEMISTRY eGFR 95 mL/min/1.73m2 12/08/2012 NA 7Result Comment: The eGFR is calculated using the CKD-EPI formula. In most young, healthy individuals the eGFR will be >90 mL/min/1.73m2. The eGFR declines with age. An eGFR of 60-89 may be normal in some populations, particularly the elderly, for whom the CKD-EPI formula has not been extensively validated. Use of the eGFR is not recommended in the following populations: Individuals with unstable creatinine concentrations, including patients and those with serious co-morbid conditions. Patients with extremes in muscle mass or diet. The data above are obtained from the National Kidney Disease Education Program (NKDEP) which additionally recommends that when the eGFR is used in patients with extremes of body mass index for purposes of drug dosing, the eGFR should be multiplied by the estimated BMI. [facility] CHEMISTRY CO2 29 meq/L 24 - 32 12/08/2012 Normal [facility] CHEMISTRY Glucose Lvl 171 mg/dL 70 - 99 12/08/2012 [place] 10Interpretive Data: Adult reference range values reflect the clinical guidelines of the [place] [employer]. [facility] CHEMISTRY Creatinine Lvl 0.5 mg/dL 0.5 - 1.4 12/08/2012 Normal [facility] CHEMISTRY BUN 22 mg/dL 7 - 22 12/08/2012 Normal [facility] CHEMISTRY Calcium Lvl 8.7 mg/dL 8.5 - 10.5 12/08/2012 Normal [facility] CHEMISTRY Chloride Lvl 105 meq/L 95 - 109 12/08/2012 Normal [facility] CHEMISTRY Sodium Lvl 144 meq/L 135 - 145 12/08/2012 Normal [facility] CHEMISTRY Potassium Lvl 4.0 meq/L 3.5 - 5.1 12/08/2012 Normal [facility] CHEMISTRY AGAP 14.0 meq/L 10.0 - 20.0 12/08/2012 Normal [facility] CHEMISTRY BNP 44 pg/mL <=100 12/08/2012 Normal 12Interpretive Data: Elevated results are in line with increasing severity of congestive heart failure. Minor elevations between 100 and 300 may be seen with Myocardial Ischemia, Sodium retaining drugs, and compensated/treated heart failure. [facility] CHEMISTRY Magnesium Lvl 1.9 mg/dL 1.8 - 2.4 12/08/2012 Normal [facility] HEMATOLOGY Segs-Bands # 5.0 K/CMM 1.5 - 8.1 12/08/2012 Normal [facility] HEMATOLOGY Lymphocytes # 0.5 K/CMM 1.0 - 5.5 12/08/2012 LOW [facility] HEMATOLOGY Eosinophils # 0.0 K/CMM 0.0 - 0.5 12/08/2012 Normal [facility] HEMATOLOGY Basophils # 0.0 K/CMM 0.0 - 0.2 12/08/2012 Normal [facility] HEMATOLOGY Monocytes # 0.3 K/CMM 0.0 - 0.8 12/08/2012 Normal [facility] HEMATOLOGY Monocytes 5.2 % 2.0 - 12.0 12/08/2012 Normal [facility] HEMATOLOGY Eosinophils 0.0 % 0.0 - 4.0 12/08/2012 Normal [facility] HEMATOLOGY Basophils 0.3 % 0.0 - 1.0 12/08/2012 Normal [facility] HEMATOLOGY Segs 85.8 % 45.0 - 75.0 12/08/2012 HI [facility] HEMATOLOGY Lymphocytes 8.7 % 20.0 - 40.0 12/08/2012 LOW [facility] HEMATOLOGY MPV 7.4 fL 7.4 - 10.4 12/08/2012 Normal [facility] HEMATOLOGY MCHC 32.2 g/dL 32.0 - 36.0 12/08/2012 Normal [facility] HEMATOLOGY RDW 15.6 % 11.5 - 14.5 12/08/2012 HI [facility] HEMATOLOGY Platelet 191 K/CMM 133 - 450 12/08/2012 Normal [facility] Hct 35.2 % 36.0 - 48.0 12/08/2012 LOW [facility] MCV 88.4 fL 81.0 - 99.0 12/08/2012 Normal [facility] MCH 28.5 pg 27.0 - 31.0 12/08/2012 Normal [facility] HEMATOLOGY WBC 5.9 K/CMM 3.7 - 10.4 12/08/2012 Normal [facility] HEMATOLOGY RBC 3.99 M/CMM 4.20 - 5.40 12/08/2012 LOW [facility] HEMATOLOGY Hgb 11.4 g/dL 12.0 - 16.0 12/08/2012 LOW [facility] Esophagus barium swallow function video (Rad) Esophagus barium swallow function video (Rad) Modified Barium Swallow: CLINICAL HX: Dysphagia, prolonged intubation Fluoroscopic assistance was provided for the speech pathologist for the modified barium swallow examination. FINDINGS: The patient swallowed thin barium without difficulty. No aspiration, laryngeal penetration or any significant residual is noted. The patient also tolerated pudding consistency barium and barium with cracker readily. There is no evidence for laryngeal penetration or tracheal aspiration on these latter 2 maneuvers. Please, see report by the speech pathologist for additional details. Fluoroscopy Time: 0.5 minutes SL:13 12/06/2012 - - Read by: Arnav Carlson Dictated Date/time: 12/06/12 14:51 Electronically Signed by: Arnav Carlson MD 12/06/12 14:52 FINAL REPORT [facility] CHEMISTRY Magnesium Lvl 2.1 mg/dL 1.8 - 2.4 12/06/2012 Normal [facility] CHEMISTRY Phosphorus 2.5 mg/dL 2.5 - 4.5 12/06/2012 Normal [facility] CHEMISTRY BNP 150 pg/mL <=100 12/06/2012 [place] 13Interpretive Data: Elevated results are in line with increasing severity of congestive heart failure. Minor elevations between 100 and 300 may be seen with Myocardial Ischemia, Sodium retaining drugs, and compensated/treated heart failure. [facility] CHEMISTRY Chloride Lvl 109 meq/L 95 - 109 12/06/2012 Normal [facility] CHEMISTRY Potassium Lvl 3.6 meq/L 3.5 - 5.1 12/06/2012 Normal [facility] CHEMISTRY Sodium Lvl 145 meq/L 135 - 145 12/06/2012 Normal [facility] CHEMISTRY eGFR 102 mL/min/1.73m2 12/06/2012 NA 8Result Comment: The eGFR is calculated using the CKD-EPI formula. In most young, healthy individuals the eGFR will be >90 mL/min/1.73m2. The eGFR declines with age. An eGFR of 60-89 may be normal in some populations, particularly the elderly, for whom the CKD-EPI formula has not been extensively validated. Use of the eGFR is not recommended in the following populations: Individuals with unstable creatinine concentrations, including patients and those with serious co-morbid conditions. Patients with extremes in muscle mass or diet. The data above are obtained from the National Kidney Disease Education Program (NKDEP) which additionally recommends that when the eGFR is used in patients with extremes of body mass index for purposes of drug dosing, the eGFR should be multiplied by the estimated BMI. [facility] CHEMISTRY Creatinine Lvl 0.4 mg/dL 0.5 - 1.4 12/06/2012 LOW [facility] CHEMISTRY CO2 28 meq/L 24 - 32 12/06/2012 Normal [facility] CHEMISTRY Calcium Lvl 8.3 mg/dL 8.5 - 10.5 12/06/2012 LOW [facility] CHEMISTRY BUN 12 mg/dL 7 - 22 12/06/2012 Normal [facility] CHEMISTRY Glucose Lvl 157 mg/dL 70 - 99 12/06/2012 [place] 11Interpretive Data: Adult reference range values reflect the clinical guidelines of the [place] [employer]. [facility] CHEMISTRY AGAP 11.6 meq/L 10.0 - 20.0 12/06/2012 Normal [facility] HEMATOLOGY Eosinophils # 0.0 K/CMM 0.0 - 0.5 12/06/2012 Normal [facility] HEMATOLOGY Basophils # 0.0 K/CMM 0.0 - 0.2 12/06/2012 Normal [facility] HEMATOLOGY Monocytes # 0.5 K/CMM 0.0 - 0.8 12/06/2012 Normal [facility] HEMATOLOGY Lymphocytes 11.4 % 20.0 - 40.0 12/06/2012 LOW [facility] HEMATOLOGY Monocytes 9.4 % 2.0 - 12.0 12/06/2012 Normal [facility] HEMATOLOGY Eosinophils 0.1 % 0.0 - 4.0 12/06/2012 Normal [facility] HEMATOLOGY Segs 78.9 % 45.0 - 75.0 12/06/2012 [facility] HEMATOLOGY Basophils 0.2 % 0.0 - 1.0 12/06/2012 Normal [facility] HEMATOLOGY Segs-Bands # 4.6 K/CMM 1.5 - 8.1 12/06/2012 Normal [facility] HEMATOLOGY Lymphocytes # 0.7 K/CMM 1.0 - 5.5 12/06/2012 LOW [facility] HEMATOLOGY RDW 15.8 % 11.5 - 14.5 12/06/2012 [facility] [place] HEMATOLOGY Platelet 181 K/CMM 133 - 450 12/06/2012 Normal [facility] HEMATOLOGY MPV 7.6 fL 7.4 - 10.4 12/06/2012 Normal [facility] HEMATOLOGY RBC 3.76 M/CMM 4.20 - 5.40 12/06/2012 LOW [facility] HEMATOLOGY Hgb 10.9 g/dL 12.0 - 16.0 12/06/2012 LOW [facility] HEMATOLOGY Hct 33.9 % 36.0 - 48.0 12/06/2012 LOW [facility] HEMATOLOGY MCV 90.1 fL 81.0 - 99.0 12/06/2012 Normal [facility] HEMATOLOGY WBC 5.8 K/CMM 3.7 - 10.4 12/06/2012 Normal [facility] HEMATOLOGY MCHC 32.1 g/dL 32.0 - 36.0 12/06/2012 Normal [facility] HEMATOLOGY MCH 28.9 pg 27.0 - 31.0 12/06/2012 Normal [facility] CHEMISTRY pCO2 Art 40 mm[Hg] 35 - 45 12/05/2012 Normal [facility] CHEMISTRY pO2 Art 114 mm[Hg] 80 - 100 12/05/2012 [facility] CHEMISTRY HCO3 Art 28 mMol/L 22 - 26 12/05/2012 [facility] CHEMISTRY pH Art 7.46 7.35 - 7.45 12/05/2012 [facility] CHEMISTRY Site Art Left Rad (12/05/2012 12:15:00) 12/05/2012 Normal [facility] CHEMISTRY Temp Art 37.0 Melissa 12/05/2012 NA [facility] CHEMISTRY BE Art 4 mMol/L -2-2 - 2 12/05/2012 [facility] CHEMISTRY O2 Sat Art 98.7 % 95.0 - 100.0 12/05/2012 Normal [facility] CHEMISTRY Mode Art See Note (12/05/2012 12:15:00) 12/05/2012 Normal [facility] CHEMISTRY Allens Art Positive (12/05/2012 12:15:00) 12/05/2012 Normal [facility] CHEMISTRY FiO2 Art 30.0 12/05/2012 NA [facility] CHEMISTRY Flow Art 10.0 12/05/2012 NA [facility] Chest 1view Chest 1view CHEST, portable (1 view) HISTORY: Respiratory distress, intubated. COMPARISON: yesterday's study. Studies of 12/03/2012, 12/01/2012, and 12/20/[address] scan of 06/19/2009 were reviewed. FINDINGS: 1. The endotracheal tube is in good position with its tip approximately 5.3 cm above the felice. 2. Mild left basilar opacity may represent a small or early infiltrate. The lungs are otherwise clear. There is no pneumothorax. 3. The heart is normal in size. There is no evidence of failure. 4. There are mild chronic nonspecific interstitial changes. 5. The nasogastric tube extends into the stomach. Coding: Chest 1view CPT Code: 93651 SL: 12 Ryland Daniel M.D. 12/05/2012 - - Read by: Ryland Daniel Dictated Date/time: 12/05/12 07:55 Electronically Signed by: Ryland Daniel MD 12/05/12 07:57 FINAL REPORT [facility] CHEMISTRY BNP 254 pg/mL <=100 12/04/2012 [place] 14Interpretive Data: Elevated results are in line with increasing severity of congestive heart failure. Minor elevations between 100 and 300 may be seen with Myocardial Ischemia, Sodium retaining drugs, and compensated/treated heart failure. [facility] CHEMISTRY Magnesium Lvl 1.8 mg/dL 1.8 - 2.4 12/04/2012 Normal [facility] Chest 1view Chest 1view Portable chest: The endotracheal tube and nasogastric tube are in good position. The lungs and pleural spaces are clear. There is no significant change compared to the previous day considering technical differences. SL:13 12/04/2012 - - Read by: Abner Valero Dictated Date/time: 12/04/12 07:01 Electronically Signed by: Abner Valero MD 12/04/12 07:01 FINAL REPORT [facility] Microbiology Gram Stain 12/03/2012 [facility] Microbiology Culture: Respiratory w/Gram Stain 12/03/2012 [facility] Chest 1view Chest 1view HISTORY: Respiratory failure. One view chest. Comparison 12/02/2012. Endotracheal tube and nasogastric tube are satisfactory. Lungs are otherwise clear. There is no pleural effusion or pneumothorax. Chronic degenerative changes are present in the shoulders. IMPRESSION: No acute findings SL: 12/03/2012 - - Read by: Flaquito Pineda Dictated Date/time: 12/03/12 07:02 Electronically Signed by: Flaquito Pineda MD 12/03/12 07:02 FINAL REPORT [facility] Microbiology Gram Stain 12/02/2012 [facility] Chest 1view Chest 1view Portable chest: The endotracheal tube and nasogastric tube are in satisfactory position. Stable interstitial changes in the lungs are noted. The lungs and pleural spaces are otherwise clear. There are no other new findings compared to the previous day. SL:12/02/2012 - - Read by: Abner Valero Dictated Date/time: 12/02/12 10:31 Electronically Signed by: Abner Valero MD 12/02/12 10:32 FINAL REPORT [facility] CHEMISTRY CHD Risk 1.91 3.90 - 5.80 12/01/2012 LOW [facility] CHEMISTRY LDL 67 mg/dL <=99 12/01/2012 Normal [facility] CHEMISTRY Trig 69 mg/dL <=149 12/01/2012 Normal [facility] CHEMISTRY Chol 170 mg/dL <=199 12/01/2012 Normal [facility] CHEMISTRY HDL 89 mg/dL >=61 12/01/2012 Normal [facility] CHEMISTRY TSH 0.972 uIU/mL 0.360 - 3.740 12/01/2012 Normal [facility] CHEMISTRY Phosphorus 2.1 mg/dL 2.5 - 4.5 12/01/2012 LOW [facility] CHEMISTRY Alk Phos 106 unit/L 39 - 136 12/01/2012 Normal [facility] CHEMISTRY Bili Total 0.2 mg/dL 0.2 - 1.3 12/01/2012 Normal [facility] CHEMISTRY A/G Ratio 1.1 0.7 - 1.6 12/01/2012 Normal [facility] CHEMISTRY ALT 14 unit/L 0 - 65 12/01/2012 Normal [facility] CHEMISTRY AST 20 unit/L 0 - 37 12/01/2012 Normal [facility] CHEMISTRY B/C Ratio 28 6 - 25 12/01/2012 [facility] [place] CHEMISTRY Total Protein 5.9 g/dL 6.4 - 8.4 12/01/2012 LOW [facility] CHEMISTRY Albumin Lvl 3.1 g/dL 3.5 - 5.0 12/01/2012 LOW [facility] CHEMISTRY Globulin 2.8 g/dL 2.0 - 4.0 12/01/2012 Normal [facility] CHEMISTRY Rate Art 12 12/01/2012 NA [facility] CHEMISTRY Vt Art 400 12/01/2012 NA [facility] CHEMISTRY Mode Art A/C (12/01/2012 04:42:01) 12/01/2012 Normal [facility] CHEMISTRY PEEP Art 5.0 12/01/2012 NA [facility] CHEMISTRY FiO2 Art 60.0 12/01/2012 NA [facility] CHEMISTRY BE Art 0 mMol/L -2-2 - 2 12/01/2012 Normal [facility] CHEMISTRY HCO3 Art 23 mMol/L 22 - 26 12/01/2012 Normal [facility] CHEMISTRY O2 Sat Art 99.9 % 95.0 - 100.0 12/01/2012 Normal [facility] CHEMISTRY Site Art Right Ra (12/01/2012 04:42:01) 12/01/2012 Normal [facility] CHEMISTRY pO2 Art 291 mm[Hg] 80 - 100 12/01/2012 [place] [facility] CHEMISTRY Temp Art 37.0 Melissa 12/01/2012 NA [facility] CHEMISTRY Allens Art Positive (12/01/2012 04:42:01) 12/01/2012 Normal [facility] CHEMISTRY pCO2 Art 34 mm[Hg] 35 - 45 12/01/2012 LOW [facility] CHEMISTRY pH Art 7.44 7.35 - 7.45 12/01/2012 Normal [facility] Chest 1view Chest 1view Portable chest: The endotracheal tube tip remains in satisfactory position. The NG tube tip is in the midthoracic esophagus. Perihilar interstitial changes in the lungs are stable compared to the previous day. The lungs and pleural spaces are otherwise clear. There are no other new findings. SL:13 12/01/2012 - - Read by: Abner Valero Dictated Date/time: 12/01/12 15:40 Electronically Signed by: Abner Valero MD 12/01/12 15:41 FINAL REPORT [facility] BACTERIAL - SEROLOGY MRSA by PCR Negative 1 (11/30/2012 20:12:46) 12/01/2012 Normal 1Interpretive Data: Interpretive Data: The [employer] Light[employer] MRSA assay is a qualitative test for the direct detection of nasal colonization with methicillin-resistant Staphylococcus aureus (MRSA) to aid in the prevention and control of MRSA infections in healthcare settings. A positive result does not indicate an infection or require treatment. A negative result does not exclude colonization or infection. The polymerase chain reaction (PCR) assay detects a proprietary sequence indicative of the integration of the SCCmec cassette into the Staphylococcus aureus chromosome, indicating the presence of MRSA DNA. The assay utilizes FDA cleared IVD reagents. Performance characteristics have been verified by the [facility] within the [facility]. The [facility] is authorized under the Clinical Laboratory Improvement Amendment of 1988 (CLIA-88) to perform high complexity testing. [facility] HEMATOLOGY Eos Smear Occasional (11/30/2012 16:14:00) None Seen 11/30/2012 Normal [facility] Abdomen AP view Abdomen AP view Portable abdomen: The study is positioned over the lower chest and upper abdomen The orogastric tube tip is in the stomach. The is no significant bowel distention or visible pneumoperitoneum. SL:13 11/30/2012 - - Read by: Abner Valero Dictated Date/time: 11/30/12 21:39 Electronically Signed by: Abner Valero MD 11/30/12 21:40 FINAL REPORT [facility] CHEMISTRY PEEP Art 5.0 11/30/2012 [facility] CHEMISTRY Mode Art A/C (11/30/2012 14:02:00) 11/30/2012 [facility] CHEMISTRY Rate Art 12 11/30/2012 [facility] CHEMISTRY FiO2 Art 100.0 11/30/2012 [facility] CHEMISTRY Temp Art 37.0 Melissa 11/30/2012 [facility] CHEMISTRY Vt Art 400 11/30/2012 [facility] CHEMISTRY pO2 Art 435 mm[Hg] 80 - 100 11/30/2012 [facility] CHEMISTRY pCO2 Art 68 mm[Hg] 35 - 45 11/30/2012 CRIT 15Result Comment: Critical Result(s) called to bk Oliveira at 11/30/2012 14:14 by hb. Read back OK. [facility] CHEMISTRY pH Art 7.23 7.35 - 7.45 11/30/2012 LOW [facility] CHEMISTRY BE Art -1 mMol/L -2-2 - 2 11/30/2012 Normal [facility] CHEMISTRY HCO3 Art 28 mMol/L 22 - 26 11/30/2012 [place] [facility] CHEMISTRY O2 Sat Art 100.0 % 95.0 - 100.0 11/30/2012 Normal [facility] Microbiology Culture: Blood 11/30/2012 [facility] Microbiology Gram Stain 11/30/2012 [facility] Microbiology Culture: Respiratory w/Gram Stain 11/30/2012 [facility] VIRAL - SEROLOGY Influ B Negative 5 (11/30/2012 13:35:00) Negative 11/30/2012 Normal 5Interpretive Data: Due to the low sensitivity of this test a negative result does not exclude influenza virus infection. A diagnosis of influenza should be considered based on a patient's clinical presentation and empiric antiviral treatment should be considered, if indicated. If more conclusive testing is desired, follow-up confirmatory testing with either viral culture or PCR is warranted. [facility] VIRAL - SEROLOGY Influ A Negative (11/30/2012 13:35:00) Negative 11/30/2012 Normal [facility] Microbiology Culture: Blood 11/30/2012 [facility] CHEMISTRY Lactic Acid Lvl 1.7 mMol/L 0.5 - 2.2 11/30/2012 Normal [facility] URINALYSIS UA Urobilinogen <=1.0 mg/dL
*NA*
(11/30/2012 13:00:30) <sup> </sup> 0.1 - 1.0 11/30/2012 [facility] URINALYSIS UA Mucus Few /LPF *NA* (11/30/2012 13:00:30) None Seen 11/30/2012 [facility] URINALYSIS UA Turbidity Slight *ABN* (11/30/2012 13:00:30) Clear 11/30/2012 ABN [facility] URINALYSIS UA Nitrite Negative (11/30/2012 13:00:30) Negative 11/30/2012 Normal [facility] URINALYSIS UA Ketones Negative mg/dL *NA* (11/30/2012 13:00:30) Negative 11/30/2012 [facility] URINALYSIS UA Bili Negative *NA* (11/30/2012 13:00:30) Negative 11/30/2012 [facility] URINALYSIS UA Glucose Negative mg/dL *NA* (11/30/2012 13:00:30) Negative 11/30/2012 [facility] URINALYSIS UA Protein >=300 mg/dL *ABN* (11/30/2012 13:00:30) Negative 11/30/2012 ABN [facility] URINALYSIS UA Spec Grav 1.022 <=1.030 11/30/2012 Normal [facility] URINALYSIS UA pH 5.0 5.0 - 8.0 11/30/2012 Normal [facility] URINALYSIS UA Blood Negative (11/30/2012 13:00:30) Negative 11/30/2012 Normal [facility] URINALYSIS UA Color Yellow *NA* (11/30/2012 13:00:30) Yellow 11/30/2012 NA [facility] URINALYSIS UA WBC 1 /HPF 0 - 5 11/30/2012 Normal [facility] URINALYSIS UA RBC null 0 - 2 11/30/2012 Normal [facility] URINALYSIS UA Sq Epi Occasional /LPF *NA* (11/30/2012 13:00:30) Few 11/30/2012 NA [facility] URINALYSIS UA Leuk Est Negative (11/30/2012 13:00:30) Negative 11/30/2012 Normal [facility] IMMUNOLOGY IgE Lvl 79.7 [iU]/mL 10.0 - 100.0 11/30/2012 Normal [facility] CHEMISTRY CK MB Index 1.5 0.0 - 2.5 11/30/2012 Normal [facility] CHEMISTRY Total Protein 7.9 g/dL 6.4 - 8.4 11/30/2012 Normal [facility] CHEMISTRY Albumin Lvl 4.0 g/dL 3.5 - 5.0 11/30/2012 Normal [facility] CHEMISTRY ALT 17 unit/L 0 - 65 11/30/2012 Normal [facility] CHEMISTRY Alk Phos 146 unit/L 39 - 136 11/30/2012 [place] [facility] CHEMISTRY Bili Total 0.1 mg/dL 0.2 - 1.3 11/30/2012 LOW [facility] CHEMISTRY AST 20 unit/L 0 - 37 11/30/2012 Normal [facility] CHEMISTRY Globulin 3.9 g/dL 2.0 - 4.0 11/30/2012 Normal [facility] CHEMISTRY B/C Ratio 22 6 - 25 11/30/2012 Normal [facility] CHEMISTRY A/G Ratio 1.0 0.7 - 1.6 11/30/2012 Normal [facility] CHEMISTRY Total CK 130 unit/L 12 - 191 11/30/2012 Normal [facility] CHEMISTRY CK MB 2.0 ng/mL 0.5 - 3.6 11/30/2012 Normal [facility] CHEMISTRY Troponin-I null 0.00 - 0.40 11/30/2012 Normal [facility] PTT 27.4 s 22.9 - 35.8 11/30/2012 Normal 17Interpretive Data: Heparin Therapeutic Range: 57 - 92 [facility] PT 13.1 s 12.0 - 14.7 11/30/2012 Normal [facility] INR 0.97 0.85 - 1.17 11/30/2012 Normal 16Interpretive Data: RECOMMENDED RANGES FOR PROTIME INR: 2.0-3.0 for most medical and surgical thromboembolic states. 2.5-3.5 for artificial heart valves and recurrent embolism. INR SHOULD BE USED ONLY FOR PATIENTS ON STABLE ANTICOAGULANT THERAPY. [facility] Chest 1view Chest 1view CHEST RADIOGRAPH SINGLE VIEW INDICATION: Dyspnea COMPARISON: Chest radiograph 11/30/2012 IMPRESSION: 1. There has been interval placement of an endotracheal tube, the distal end approximately 1.8 cm above the felice. 2. No acute intrathoracic abnormalities are visualized. SL: 13 11/30/2012 - - Read by: José Stoll Dictated Date/time: 11/30/12 13:29 Electronically Signed by: José Stoll MD 11/30/12 13:30 FINAL REPORT [facility] Chest 1view Chest 1view PROCEDURE: Chest 1view REASON FOR EXAM: See Clinic Indication CLINICAL INDICATION: Dyspnea COMPARISON: 11/13/2012. FINDINGS: No acute process. No focal consolidation, pleural effusion, or pneumothorax. The lungs are mildly hyperexpanded. Stable cardiac silhouette and mediastinum. Moderate hiatal hernia. SL: 12 11/30/2012 - - Read by: Arnoldo Isaac Dictated Date/time: 11/30/12 12:16 Electronically Signed by: Arnoldo Isaac MD 11/30/12 12:17 FINAL REPORT [facility] CHEMISTRY B/C Ratio 22 6 - 25 11/14/2012 Normal [facility] CHEMISTRY Globulin 3.8 g/dL 2.0 - 4.0 11/14/2012 Normal [facility] CHEMISTRY A/G Ratio 1.0 0.7 - 1.6 11/14/2012 Normal [facility] CHEMISTRY AGAP 14.4 meq/L 10.0 - 20.0 11/14/2012 Normal [facility] CHEMISTRY Potassium Lvl 3.4 meq/L 3.5 - 5.1 11/14/2012 LOW [facility] CHEMISTRY Chloride Lvl 107 meq/L 95 - 109 11/14/2012 Normal [facility] CHEMISTRY Sodium Lvl 145 meq/L 135 - 145 11/14/2012 Normal [facility] CHEMISTRY eGFR 89 mL/min/1.73m2 11/14/2012 NA 1Result Comment: The eGFR is calculated using the CKD-EPI formula. In most young, healthy individuals the eGFR will be >90 mL/min/1.73m2. The eGFR declines with age. An eGFR of 60-89 may be normal in some populations, particularly the elderly, for whom the CKD-EPI formula has not been extensively validated. Use of the eGFR is not recommended in the following populations: Individuals with unstable creatinine concentrations, including patients and those with serious co-morbid conditions. Patients with extremes in muscle mass or diet. The data above are obtained from the National Kidney Disease Education Program (NKDEP) which additionally recommends that when the eGFR is used in patients with extremes of body mass index for purposes of drug dosing, the eGFR should be multiplied by the estimated BMI. [facility] CHEMISTRY Glucose Lvl 100 mg/dL 70 - 99 11/14/2012 HI 2Interpretive Data: Adult reference range values reflect the clinical guidelines of the [place] [employer]. [facility] CHEMISTRY BUN 13 mg/dL 7 - 22 11/14/2012 Normal [facility] CHEMISTRY Creatinine Lvl 0.6 mg/dL 0.5 - 1.4 11/14/2012 Normal [facility] CHEMISTRY ALT 19 unit/L 0 - 65 11/14/2012 Normal [facility] CHEMISTRY Alk Phos 132 unit/L 39 - 136 11/14/2012 Normal [facility] CHEMISTRY Bili Total null 0.2 - 1.3 11/14/2012 LOW [facility] CHEMISTRY AST 21 unit/L 0 - 37 11/14/2012 Normal [facility] CHEMISTRY Total Protein 7.7 g/dL 6.4 - 8.4 11/14/2012 Normal [facility] CHEMISTRY Calcium Lvl 8.9 mg/dL 8.5 - 10.5 11/14/2012 Normal [facility] CHEMISTRY Albumin Lvl 3.9 g/dL 3.5 - 5.0 11/14/2012 Normal [facility] CHEMISTRY CO2 27 meq/L 24 - 32 11/14/2012 Normal [facility] HEMATOLOGY Basophils 0.7 % 0.0 - 1.0 11/14/2012 Normal [facility] HEMATOLOGY Segs-Bands # 2.1 K/CMM 1.5 - 8.1 11/14/2012 Normal [facility] HEMATOLOGY Monocytes # 0.5 K/CMM 0.0 - 0.8 11/14/2012 Normal [facility] HEMATOLOGY Eosinophils # 0.9 K/CMM 0.0 - 0.5 11/14/2012 [facility] [place] HEMATOLOGY Lymphocytes 26.4 % 20.0 - 40.0 11/14/2012 Normal [facility] HEMATOLOGY Segs 44.2 % 45.0 - 75.0 11/14/2012 LOW [facility] HEMATOLOGY Eosinophils 18.4 % 0.0 - 4.0 11/14/2012 [facility] [place] HEMATOLOGY Monocytes 10.3 % 2.0 - 12.0 11/14/2012 Normal [facility] HEMATOLOGY Lymphocytes # 1.3 K/CMM 1.0 - 5.5 11/14/2012 Normal [facility] HEMATOLOGY Basophils # 0.0 K/CMM 0.0 - 0.2 11/14/2012 Normal [facility] HEMATOLOGY MPV 6.9 fL 7.4 - 10.4 11/14/2012 LOW [facility] HEMATOLOGY RDW 14.8 % 11.5 - 14.5 11/14/2012 [facility] [place] HEMATOLOGY Platelet 247 K/CMM 133 - 450 11/14/2012 Normal [facility] HEMATOLOGY MCH 28.4 pg 27.0 - 31.0 11/14/2012 Normal [facility] HEMATOLOGY MCHC 31.9 g/dL 32.0 - 36.0 11/14/2012 [facility] HEMATOLOGY Hgb 11.4 g/dL 12.0 - 16.0 11/14/2012 [facility] HEMATOLOGY Hct 35.5 % 36.0 - 48.0 11/14/2012 [facility] HEMATOLOGY WBC 4.7 K/CMM 3.7 - 10.4 11/14/2012 Normal [facility] HEMATOLOGY RBC 4.00 M/CMM 4.20 - 5.40 11/14/2012 [facility] HEMATOLOGY MCV 88.9 fL 81.0 - 99.0 11/14/2012 Normal [facility] URINALYSIS UA Urobilinogen <=1.0 mg/dL
*NA*
(11/13/2012 20:00:00) <sup> </sup> 0.1 - 1.0 11/14/2012 [facility] URINALYSIS UA Color Ltyellow 11/14/2012 NA [facility] URINALYSIS UA Sq Epi Occasional /LPF *NA* (11/13/2012 20:00:00) Few 11/14/2012 NA [facility] URINALYSIS UA Leuk Est Negative (11/13/2012 20:00:00) Negative 11/14/2012 Normal [facility] URINALYSIS UA WBC 1 /HPF 0 - 5 11/14/2012 Normal [facility] URINALYSIS UA RBC null 0 - 2 11/14/2012 Normal [facility] URINALYSIS UA Bili Negative *NA* (11/13/2012 20:00:00) Negative 11/14/2012 [facility] URINALYSIS UA Glucose Negative mg/dL *NA* (11/13/2012 20:00:00) Negative 11/14/2012 NA [facility] URINALYSIS UA Blood Negative (11/13/2012 20:00:00) Negative 11/14/2012 Normal [facility] URINALYSIS UA Ketones Negative mg/dL *NA* (11/13/2012 20:00:00) Negative 11/14/2012 NA [facility] URINALYSIS UA Nitrite Negative (11/13/2012 20:00:00) Negative 11/14/2012 Normal [facility] URINALYSIS UA Turbidity Clear (11/13/2012 20:00:00) Clear 11/14/2012 Normal [facility] URINALYSIS UA Spec Grav 1.010 <=1.030 11/14/2012 Normal [facility] URINALYSIS UA pH 7.0 5.0 - 8.0 11/14/2012 Normal [facility] URINALYSIS UA Protein Negative mg/dL (11/13/2012 20:00:00) Negative 11/14/2012 Normal [facility] Chest 1view Chest 1view PROCEDURE: Chest 1view REASON FOR EXAM: See Clinic Indication CLINICAL INDICATION: Dyspnea COMPARISON: 09/21/2012. FINDINGS: No acute process. No focal consolidation, pleural effusion, or pneumothorax. Stable cardiac silhouette and mediastinum. Probably moderate hiatal hernia. SL: 12 11/13/2012 - - Read by: Arnoldo Isaac Dictated Date/time: 11/13/12 20:17 Electronically Signed by: Arnoldo Isaac MD 11/13/12 20:17 FINAL REPORT [facility] CHEMISTRY Temp Art 37.0 Melissa 09/21/2012 NA [facility] CHEMISTRY Site Art Right Ra (09/21/2012 09:09:00) 09/21/2012 Normal [facility] CHEMISTRY O2 Sat Art 91.6 % 95.0 - 100.0 09/21/2012 LOW [facility] CHEMISTRY BE Art 3 mMol/L -2-2 - 2 09/21/2012 [facility] CHEMISTRY HCO3 Art 28 mMol/L 22 - 26 09/21/2012 [facility] CHEMISTRY pO2 Art 62 mm[Hg] 80 - 100 09/21/2012 LOW [facility] CHEMISTRY pCO2 Art 45 mm[Hg] 35 - 45 09/21/2012 Normal [facility] CHEMISTRY pH Art 7.41 7.35 - 7.45 09/21/2012 Normal [facility] CHEMISTRY FiO2 Art 21.0 09/21/2012 NA [facility] CHEMISTRY Allens Art Positive (09/21/2012 09:09:00) 09/21/2012 Normal [facility] CHEMISTRY AGAP 12.3 meq/L 10.0 - 20.0 09/21/2012 Normal [facility] CHEMISTRY Glucose Lvl 106 mg/dL 70 - 99 09/21/2012 HI 2Interpretive Data: Adult reference range values reflect the clinical guidelines of the [place] [employer]. [facility] CHEMISTRY BUN 10 mg/dL 7 - 22 09/21/2012 Normal [facility] CHEMISTRY CO2 28 meq/L 24 - 32 09/21/2012 Normal [facility] CHEMISTRY eGFR 95 mL/min/1.73m2 09/21/2012 NA 1Result Comment: The eGFR is calculated using the CKD-EPI formula. In most young, healthy individuals the eGFR will be >90 mL/min/1.73m2. The eGFR declines with age. An eGFR of 60-89 may be normal in some populations, particularly the elderly, for whom the CKD-EPI formula has not been extensively validated. Use of the eGFR is not recommended in the following populations: Individuals with unstable creatinine concentrations, including patients and those with serious co-morbid conditions. Patients with extremes in muscle mass or diet. The data above are obtained from the National Kidney Disease Education Program (NKDEP) which additionally recommends that when the eGFR is used in patients with extremes of body mass index for purposes of drug dosing, the eGFR should be multiplied by the estimated BMI. [facility] CHEMISTRY Potassium Lvl 3.3 meq/L 3.5 - 5.1 09/21/2012 LOW [facility] CHEMISTRY Sodium Lvl 142 meq/L 135 - 145 09/21/2012 Normal [facility] CHEMISTRY Creatinine Lvl 0.5 mg/dL 0.5 - 1.4 09/21/2012 Normal [facility] CHEMISTRY Calcium Lvl 8.7 mg/dL 8.5 - 10.5 09/21/2012 Normal [facility] CHEMISTRY Chloride Lvl 105 meq/L 95 - 109 09/21/2012 Normal [facility] CHEMISTRY BNP 33 pg/mL <=100 09/21/2012 Normal 3Interpretive Data: Elevated results are in line with increasing severity of congestive heart failure. Minor elevations between 100 and 300 may be seen with Myocardial Ischemia, Sodium retaining drugs, and compensated/treated heart failure. [facility] HEMATOLOGY MPV 6.8 fL 7.4 - 10.4 09/21/2012 LOW [facility] HEMATOLOGY Platelet 238 K/CMM 133 - 450 09/21/2012 Normal [facility] HEMATOLOGY RBC 3.96 M/CMM 4.20 - 5.40 09/21/2012 LOW [facility] HEMATOLOGY WBC 4.4 K/CMM 3.7 - 10.4 09/21/2012 Normal [facility] HEMATOLOGY MCHC 32.3 g/dL 32.0 - 36.0 09/21/2012 Normal [facility] HEMATOLOGY Hgb 11.8 g/dL 12.0 - 16.0 09/21/2012 LOW [facility] HEMATOLOGY Hct 36.6 % 36.0 - 48.0 09/21/2012 Normal [facility] HEMATOLOGY MCV 92.3 fL 81.0 - 99.0 09/21/2012 Normal [facility] HEMATOLOGY RDW 13.7 % 11.5 - 14.5 09/21/2012 Normal [facility] MCH 29.8 pg 27.0 - 31.0 09/21/2012 Normal [facility] HEMATOLOGY Lymphocytes 24.3 % 20.0 - 40.0 09/21/2012 Normal [facility] HEMATOLOGY Segs 53.4 % 45.0 - 75.0 09/21/2012 Normal [facility] HEMATOLOGY Monocytes 8.0 % 2.0 - 12.0 09/21/2012 Normal [facility] HEMATOLOGY Eosinophils 13.4 % 0.0 - 4.0 09/21/2012 HI [facility] HEMATOLOGY Lymphocytes # 1.1 K/CMM 1.0 - 5.5 09/21/2012 Normal [facility] HEMATOLOGY Segs-Bands # 2.4 K/CMM 1.5 - 8.1 09/21/2012 Normal [facility] HEMATOLOGY Basophils 0.9 % 0.0 - 1.0 09/21/2012 Normal [facility] HEMATOLOGY Basophils # 0.0 K/CMM 0.0 - 0.2 09/21/2012 Normal [facility] HEMATOLOGY Eosinophils # 0.6 K/CMM 0.0 - 0.5 09/21/2012 HI [facility] HEMATOLOGY Monocytes # 0.4 K/CMM 0.0 - 0.8 09/21/2012 Normal [facility] Chest 2 views Chest 2 views PROCEDURE: Chest 2 views REASON FOR EXAM: See Clinic Indication CLINICAL INDICATION: Shortness of Breath COMPARISON: 12/21/2010. FINDINGS: No acute process. No focal consolidation, pleural effusion, or pneumothorax. The lungs are mildly hyperexpanded. Stable prominent cardiac silhouette and mediastinum. Tortuous thoracic aorta. SL: 13 09/21/2012 - - Read by: Arnoldo Isaac Dictated Date/time: 09/21/12 09:40 Electronically Signed by: Arnoldo Isaac MD 09/21/12 09:40 FINAL REPORT [facility] Vital Signs Vital Sign Value Date Comments Source Systolic (mm Hg) 128 04/21/2017 [facility] Diastolic (mm Hg) 75 04/21/2017 [facility] Respitory Rate 18 04/21/2017 [facility] Heart Rate 90 04/21/2017 [facility] Temperature Oral (F) 99.1 F 04/21/2017 [facility] BMI Calculated 25.44 04/20/2017 [facility] Weight 59.091 04/20/2017 [facility] Height 152.4 cm 04/20/2017 [facility] Heart Rate 92 04/20/2017 [facility] Systolic (mm Hg) 123 04/20/2017 [facility] Diastolic (mm Hg) 80 04/20/2017 [facility] Temperature Oral (F) 99.5 F 04/20/2017 [facility] Respitory Rate 18 04/20/2017 [facility] Respitory Rate 20 01/01/2015 [facility] Heart Rate 74 01/01/2015 [facility] Temperature Oral (F) 98.2 F 01/01/2015 [facility] Systolic (mm Hg) 106 01/01/2015 [facility] Diastolic (mm Hg) 62 01/01/2015 [facility] Respitory Rate 14 01/01/2015 [facility] Systolic (mm Hg) 110 01/01/2015 [facility] Diastolic (mm Hg) 59 01/01/2015 [facility] Respitory Rate 18 01/01/2015 [facility] Heart Rate 62 01/01/2015 [facility] Temperature Oral (F) 98.1 F 01/01/2015 [facility] Systolic (mm Hg) 98 01/01/2015 [facility] Diastolic (mm Hg) 62 01/01/2015 [facility] Heart Rate 90 01/01/2015 [facility] Temperature Oral (F) 99.2 F 01/01/2015 [facility] BMI Calculated 27.12 12/31/2014 [facility] Weight 60.909 12/31/2014 [facility] Height 149.86 cm 12/31/2014 [facility] Heart Rate 118 12/12/2012 [facility] Temperature Oral (F) 98.1 F 12/12/2012 [facility] Systolic (mm Hg) 109 12/12/2012 [facility] Respitory Rate 16 12/12/2012 [facility] Diastolic (mm Hg) 74 12/12/2012 [facility] Respitory Rate 14 12/12/2012 [facility] Heart Rate 92 12/12/2012 [facility] Temperature Oral (F) 98.9 F 12/12/2012 [facility] Respitory Rate 14 12/12/2012 [facility] Systolic (mm Hg) 91 12/12/2012 [facility] Diastolic (mm Hg) 57 12/12/2012 [facility] Systolic (mm Hg) 92 12/12/2012 [facility] Diastolic (mm Hg) 58 12/12/2012 [facility] Temperature Oral (F) 99.0 F 12/12/2012 [facility] Heart Rate 81 12/12/2012 [facility] Height 157.48 cm 11/30/2012 [facility] Weight 60 11/30/2012 [facility] Weight 60.909 11/14/2012 [facility] Height 142.24 cm 11/14/2012 [facility] Height 152.4 cm 09/21/2012 [facility] Weight 60 09/21/2012 [facility] Encounters Location Location Details Encounter Type Encounter Number Reason For Visit Attending Provider ADM Date DC Date Status Source [facility] Outpatient [id number] 786.3 HEMOPTYSIS// 793.1 LESION OF LUNG // SUDHA SETHI 06/19/2009 06/19/2009 Active [facility] Inpatient [id number] HUFF EMMA 12/21/2010 12/23/2010 Active [facility] Emergency [id number] DANIEL ERWIN 09/21/2012 09/21/2012 Active [facility] Emergency [id number] KAMALJIT MARTINEZ 11/13/2012 11/13/2012 Active [facility] Inpatient [id number] REFUGIO EMMA 11/30/2012 12/12/2012 Active [facility] [id number] Saturnino Carbone 12/31/2014 01/01/2015 [facility] Emergency [id number] Shanice Isaac 04/20/2017 04/21/2017 [facility] Procedures Procedure Code Date Perfomer Comments Source Carpal tunnel release [id number] [facility]
--- OUTSIDE RECORDS SUMMARY | 2018-07-25 20:59 | XMS REPORT | Summary of Care ---
Author Author [facility] Organization [facility] Address Unknown Phone Unavailable Encounter JULIAN Harris(AGNEL) [id number] Date(s): 12/31/14 - 01/01/15 [facility] [address] [place] [address]- [phone] Discharge Diagnosis: Bronchitis Discharge Diagnosis: Appendicolith Discharge Diagnosis: Gastritis Discharge Diagnosis: Dehydration Discharge Disposition: Home Attending Physician: Logan Abebe MD Referring Physician: Saturnino Carbone MD Vital Signs 1 2 3 Most recent to oldest [Reference Range]: 149.86 cm (12/31/14 5:51 PM) Height 1 2 3 Most recent to oldest [Reference Range]: 98.2 DegF (01/01/15 3:35 AM) 98.1 DegF (01/01/15 1:24 AM) 99.2 DegF *HI* (12/31/14 9:45 PM) Temperature Oral [96.4-99.1 DegF] 1 2 3 Most recent to oldest [Reference Range]: 106/62 mmHg (01/01/15 3:35 AM) 110/59 mmHg (01/01/15 1:24 AM) 98/62 mmHg (12/31/14 9:45 PM) Blood Pressure [90-140/60-90 mmHg] 1 2 3 Most recent to oldest [Reference Range]: 20 BRMIN (01/01/15 3:35 AM) 14 BRMIN (01/01/15 1:50 AM) 18 BRMIN (01/01/15 1:24 AM) Respiratory Rate [14-20 BRMIN] 1 2 3 Most recent to oldest [Reference Range]: 74 bpm (01/01/15 3:35 AM) 62 bpm (01/01/15 1:24 AM) 90 bpm (12/31/14 9:45 PM) Peripheral Pulse Rate [60-100 bpm] 1 2 3 Most recent to oldest [Reference Range]: 60.909 kg (12/31/14 5:51 PM) Weight 1 2 3 Most recent to oldest [Reference Range]: 27.12 m2 (12/31/14 5:51 PM) Body Mass Index Problem List Condition Effective Dates Status Health Status Informant Alzheimer's Active disease(Confirmed) Asthma(Confirmed) Active Asthma(Confirmed) Active Blood Active clot(Confirmed) COPD - Chronic Active obstructive pulmonary disease(Confirmed) Diabetes Active mellitus(Confirmed) DM - Diabetes Active mellitus(Confirmed) Hypercholesterolemia Active (Confirmed) Hypertension(Confirm Active ed) 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 Start Date: 01/01/15 Stop Date: 01/06/15 Status: Ordered Bentyl 10 mg oral capsule 10 mg=1 cap, PO, QID-Before Meals, # 14 cap, 0 Refill(s) Start Date: 01/01/15 Stop Date: 01/08/15 Status: Ordered GI cocktail 30 mL, Route: PO, Dosing Weight 60.909, kg, ONCE, STAT, Start date: 12/31/14 20: 44:00, Stop date: 12/31/14 20:44:00 Start Date: 12/31/14 Stop Date: 12/31/14 Status: Completed Maalox Advanced Maximum Strength oral suspension 5 mL, PO, QID-Before Meals, # 150 mL, 0 Refill(s) Start Date: 01/01/15 Stop Date: 01/02/15 Status: Completed NS (Bolus) IV 1,000 mL, 1,000 ml/hr, Infuse Over: 1 hr, Route: IV, ONCE, Priority: STAT, Dosin g Weight 60.909 kg, Start date: 12/31/14 20:36:00, Duration: 1 doses or times, S top date: 12/31/14 20:36:00 Start Date: 12/31/14 Stop Date: 12/31/14 Status: Completed Pepcid 20 mg, Route: IV, ONCE, Dosing Weight 60.909, kg, Start date: 12/31/14 20:38:00, Stop date: 12/31/14 20:38:00 Start Date: 12/31/14 Stop Date: 12/31/14 Status: Completed Pepcid 20 mg oral tablet 20 mg=1 tab, PO, BID, # 20 tab, 0 Refill(s) Start Date: 01/01/15 Status: Ordered Sodium Chloride 0.9% (Bolus) IV 1,000 mL, 1,000 ml/hr, Infuse Over: 1 Hour, Route: IV, ONCE, Priority: STAT, Dos ing Weight 60.909 kg, Start date: 01/01/15 1:26:00, Duration: 1 doses or times, Stop date: 01/01/15 1:26:00 Start Date: 01/01/15 Stop Date: 01/01/15 Status: Completed Zofran 4 mg, Route: IVP, Drug form: INJ, ONCE, Dosing Weight 60.909, kg, Priority: STAT , Start date: 12/31/14 20:43:00, Stop date: 12/31/14 20:43:00 Start Date: 12/31/14 Stop Date: 12/31/14 Status: Completed Zofran ODT 4 mg oral tablet, disintegrating 4 mg=1 tab, PO, BID, PRN Nausea and Vomiting, Dissolve tab under tongue, X 5 day , # 10 tab, 0 Refill(s) Special Instructions: Dissolve tab under tongue Start Date: 01/01/15 Stop Date: 01/06/15 Status: Ordered Results ELECTROLYTES Most recent to 1 oldest [Reference Range]: Sodium Lvl [135-145 141 mEq/L mEq/L] (12/31/14 6:28 PM) Potassium Lvl 3.6 mEq/L [3.5-5.1 mEq/L] (12/31/14 6:28 PM) Chloride Lvl [95-109 108 mEq/L mEq/L] (12/31/14 6:28 PM) CO2 [24-32 mEq/L] 27 mEq/L (12/31/14 6:28 PM) AGAP [10.0-20.0 9.6 mEq/L mEq/L] *LOW* (12/31/14 6:28 PM) CHEM PANEL Most recent to 1 oldest [Reference Range]: Creatinine Lvl 0.8 mg/dL [0.5-1.4 mg/dL] (12/31/14 6:28 PM) eGFR 71 mL/min/1.73m2 1 *NA* (12/31/14: PM) BUN [7-22 mg/dL] 21 mg/dL (12/31/14 6:28 PM) B/C Ratio [6-25] 26 *HI* (12/31/14 6:28 PM) Glucose Lvl [70-99 137 mg/dL mg/dL] *HI* (12/31/14 6:28 PM) Total Protein 7.9 g/dL [6.4-8.4 g/dL] (12/31/14 6:28 PM) Albumin Lvl [3.5-5.0 3.6 g/dL g/dL] (12/31/14 6:28 PM) Globulin [2.0-4.0 4.3 g/dL g/dL] *HI* (12/31/14 6:28 PM) A/G Ratio [0.7-1.6] 0.8 (12/31/14 6:28 PM) Calcium Lvl 8.2 mg/dL [8.5-10.5 mg/dL] *LOW* (12/31/14 6:28 PM) ALT [0-65 unit/L] 30 unit/L (12/31/14 6:28 PM) AST [0-37 unit/L] 33 unit/L (12/31/14 6:28 PM) Alk Phos [39-136 99 unit/L unit/L] (12/31/14 6:28 PM) Bili Total [0.2-1.3 0.4 mg/dL mg/dL] (12/31/14 6:28 PM) Lipase Lvl [73-393 153 unit/L unit/L] (12/31/14 6:28 PM) Lactic Acid Lvl 2.0 mMol/L [0.5-2.2 mMol/L] (12/31/14 6:28 PM) 1Result Comment: The eGFR is calculated using [...] from the National Kidney Disease Education Program ( NKDEP) which additionally recommends that when the eGFR is used in patients with extremes of body mass index for purposes of drug dosing, the eGFR should be mul tiplied by the estimated BMI. CARDIAC ENZYMES Most recent to 1 oldest [Reference Range]: Troponin-I <0.02 ng/mL [0.00-0.40 ng/mL] (12/31/14 6:28 PM) URINE AND STOOL Most recent to 1 oldest [Reference Range]: UA Turbidity [Clear] Clear (12/31/14 9:14 PM) UA Color [Yellow] Yellow *NA* (12/31/14 9:14 PM) UA pH [5.0-8.0] 5.0 (12/31/14 9:14 PM) UA Spec Grav 1.032 [<=1.030] *HI* (12/31/14 9:14 PM) UA Glucose [Negative Negative mg/dL mg/dL] *NA* (12/31/14 9:14 PM) UA Blood [Negative] Negative (12/31/14 9:14 PM) UA Ketones [Negative Negative mg/dL mg/dL] *NA* (12/31/14 9:14 PM) UA Protein [Negative Negative mg/dL mg/dL] (12/31/14 9:14 PM) UA Urobilinogen <=1.0 mg/dL [0.1-1.0 mg/dL] *NA* (12/31/14 9:14 PM) UA Bili [Negative] Negative *NA* (12/31/14 9:14 PM) UA Leuk Est Small [Negative] *ABN* (12/31/14 9:14 PM) UA Nitrite Negative [Negative] (12/31/14 9:14 PM) UA WBC [0-5 /HPF] 5 /HPF (12/31/14 9:14 PM) UA RBC [0-2 /HPF] 2 /HPF (12/31/14 9:14 PM) UA Sq Epi [Few /LPF] Few /LPF *NA* (12/31/14 9:14 PM) UA Hyal Cast [0-2 5 /LPF /LPF] *HI* (12/31/14 9:14 PM) UA Mucus [None Seen Many /LPF /LPF] *ABN* (12/31/14 9:14 PM) HEMATOLOGY Most recent to 1 oldest [Reference Range]: WBC [3.7-10.4 K/CMM] 10.2 K/CMM (12/31/14 6:28 PM) RBC [4.20-5.40 4.02 M/CMM M/CMM] *LOW* (12/31/14 6:28 PM) Hgb [12.0-16.0 g/dL] 12.7 g/dL (12/31/14 6:28 PM) Hct [36.0-48.0 %] 38.2 % (12/31/14 6:28 PM) MCV [80.0-98.0 fL] 95.1 fL (12/31/14 6:28 PM) MCH [27.0-31.0 pg] 31.6 pg *HI* (12/31/14 6:28 PM) MCHC [32.0-36.0 33.3 g/dL g/dL] (12/31/14 6:28 PM) RDW [11.5-14.5 %] 13.0 % (12/31/14 6:28 PM) Platelet [133-450 202 K/CMM K/CMM] (12/31/14 6:28 PM) MPV [7.4-10.4 fL] 6.6 fL *LOW* (12/31/14 6:28 PM) Segs [45.0-75.0 %] 87.3 % *HI* (12/31/14 6:28 PM) Lymphocytes 4.7 % [20.0-40.0 %] *LOW* (12/31/14 6:28 PM) Monocytes [2.0-12.0 6.0 % %] (12/31/14 6:28 PM) Eosinophils [0.0-4.0 1.7 % %] (12/31/14 6:28 PM) Basophils [0.0-1.0 0.3 % %] (12/31/14 6:28 PM) Segs-Bands # 8.9 K/CMM [1.5-8.1 K/CMM] *HI* (12/31/14 6:28 PM) Lymphocytes # 0.5 K/CMM [1.0-5.5 K/CMM] *LOW* (12/31/14 6:28 PM) Monocytes # [0.0-0.8 0.6 K/CMM K/CMM] (12/31/14 6:28 PM) Eosinophils # 0.2 K/CMM [0.0-0.5 K/CMM] (12/31/14 6:28 PM) PT [12.0-14.7 20.3 seconds seconds] *HI* (12/31/14 6:28 PM) INR [0.85-1.17] 1.70 *HI* (12/31/14 6:28 PM) PTT [22.9-35.8 31.5 seconds seconds] (12/31/14 6:28 PM) Immunizations Vaccine Date Refusal Reason pneumococcal 23-valent vaccine 12/01/12 Procedures Procedure Date Related Diagnosis Body Site Carpal tunnel release Social History Social History Type Response Smoking Status Never smoker; Exposure to Tobacco Smoke None; Cigarette Smoking Last 365 Days No; Reg Smoking Cessation Counseling No Assessment and Plan No data available for this section
--- OUTSIDE RECORDS SUMMARY | 2018-07-25 20:59 | XMS REPORT | CCD ---
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 Medications Medication Instructions Start Date End Date Status pneumococcal 0.5 ml, Route: IM, Drug Form: INJ, 12/01/2012 12/01/2012 Completed 23-valent vaccine Daily, Start date: 12/01/12 9:00:00, Duration: 1 doses or times, Stop date: 12/01/12 9:00:00 Singulair 10 mg, 1 tab, Route: PO, Drug form: 11/30/2012 12/12/2012 Discontinued TAB, Bedtime, Dosing Weight 60, kg, Start date: 11/30/12 21:00:00, Duration: 30 day, Stop date: 12/29/12 21:00:00 Namenda 10 mg oral 10 mg, 1 tab, PO, BID, 60 tab, 11/30/2012 Ordered tablet Substitution Allowed, TAB Cardizem 30 mg, 1 tab, Route: PO, Drug form: 12/12/2012 12/12/2012 Canceled TAB, Q8H, Dosing Weight 60, kg, Start date: 12/12/12 16:00:00, Duration: 30 day, Stop date: 01/11/13 8:00:00 propofol 10 mg/ml IV, Start date: 11/30/12 13:19:00, 11/30/2012 12/05/2012 Discontinued (titrate) 1,000 mg Duration: 30, 100 ml, 60 lisinopril 5 mg, 1 tab, Route: PO, Drug form: 12/03/2012 12/03/2012 Discontinued TAB, Daily, Dosing Weight 60, kg, Start date: 12/03/12 9:00:00, Duration: 30 day, Stop date: 01/01/13 9:00:00 methylPREDNISolone 60 mg, 0.96 mL, Route: IV, Drug 12/05/2012 12/07/2012 Discontinued form: INJ, Q12H, Start date: 12/05/12 21:00:00, Duration: 30 day, Stop date: 01/04/13 9:00:00 pneumococcal 0.5 ml, Route: IM, Drug Form: INJ, 12/01/2012 12/01/2012 Completed 23-valent vaccine Start date: 12/01/12 9:00:00, Stop date: 12/01/12 9:00:00 Versed 2 mg, Route: IVP, ONCE, Dosing 11/30/2012 11/30/2012 Completed Weight 60, kg, Start date: 11/30/12 15:54:00, Stop date: 11/30/12 15:54:00 Levaquin 750 mg, 150 mL, Route: IVPB, Drug 11/30/2012 12/12/2012 Discontinued form: SOLN, [id number], Dosing Weight 60, kg, Start date: 11/30/12 18:00:00, Duration: 30 day, Stop date: 12/29/12 18:00:00 nitroglycerin 0.4 mg 0.4 mg, 1 tab, Route: SL, Drug 12/07/2012 12/12/2012 Discontinued sublingual tablet form: TAB, Q5Min, PRN Chest Pain, Start date: 12/07/12 20:47:00, Duration: 30 day, Stop date: 01/06/13 20:46:00 Sodium Chloride 0.9% IV, 250 ml/hr, ONCE, Start date: 12/10/2012 12/10/2012 Completed IV 12/10/12 6:55:00, 250 ml Neurontin 300 mg, 1 cap, Route: NG, Drug 12/03/2012 12/11/2012 Discontinued form: CAP, TID, Start date: 12/03/12 13:00:00, Duration: 30 day, Stop date: 01/02/13 9:00:00 atropine 0.5 mg, 5 mL, Route: IVP, Drug 12/07/2012 12/12/2012 Discontinued form: INJ, PRN, PRN Bradycardia, Start date: 12/07/12 20:46:00, Duration: 30 day, Stop date: 01/06/13 20:45:00 benzocaine-menthol 1 lozenge, Route: MUCOUS MEM, Drug 12/11/2012 12/12/2012 Discontinued topical Form: MANJINDER, Q2H, PRN Sore Throat, Start date: 12/11/12 16:56:00, Duration: 30 day, Stop date: 01/10/13 16:55:00 morphine Sulfate 2 mg, 1 mL, Route: IV, Drug form: 12/03/2012 12/03/2012 Discontinued INJ, Q2H, Dosing Weight 60, kg, Start date: 12/03/12 10:00:00, Duration: 30 day, Stop date: 01/02/13 8:00:00 Levaquin 750 mg, 150 mL, Route: IV, Drug 11/30/2012 11/30/2012 Discontinued form: SOLN, ONCE, Dosing Weight 60, kg, Start date: 11/30/12 12:52:00, Stop date: 11/30/12 12:52:00 fentanyl 1,250 IV, Start date: 11/30/12 13:18:00, 11/30/2012 12/05/2012 Discontinued microgram Duration: 30, 250 ml, 60 DuoNeb inhalation 3 ml, Route: INHALATION, Drug Form: 11/30/2012 12/12/2012 Discontinued solution SOLN, Dosing Weight 60, kg, PRN, PRN Respiratory Protocol, Start date: 11/30/12 18:51:00, Duration: 30 day, Stop date: 12/30/12 18:50:00 albuterol 0.083% 9.96 mg, 12 mL, Route: INHALATION, 11/30/2012 11/30/2012 Completed inhalation solution Drug form: SOLN, ONCE, Dosing Weight 60, kg, Start date: 11/30/12 18:52:00, Stop date: 11/30/12 18:52:00 Lidoderm 5% topical 1 patch, Route: TOP, Daily, Drug 12/11/2012 12/12/2012 Discontinued film (patch) form: FILM, Start date: 12/11/12 9:00:00, Duration: 30 day, Stop date: 01/09/13 9:00:00, Remove after 12 hours Remove after 12 hours fentanyl 1,250 250 mL, Rate: Titrate to RASS -2, 11/30/2012 11/30/2012 Voided With microgram + Sodium Dosing Weight 60, kg, Route: IV, Results Chloride 0.9% Total Volume: 250, Duration: 30 (titrate) 250 mL day, Stop date: 12/30/12 12:59:00, Replace Every: 24 hr Remove - lidocaine 1 patch, Route: MISC, Bedtime, Drug 12/11/2012 12/12/2012 Discontinued topical patch form: ERFILM, Start date: 12/11/12 21:00:00, Duration: 30 day, Stop date: 01/09/13 21:00:00 methylPREDNISolone 125 mg, Route: IVP, ONCE, Dosing 11/30/2012 11/30/2012 Completed SODium SUCCinate Weight 60, kg, Priority: STAT, Start date: 11/30/12 12:04:00, Stop date: 11/30/12 12:04:00 Saline Flush 0.9% 5 mL, Route: IVP, Drug Form: INJ, 11/30/2012 12/07/2012 Discontinued Dosing Weight 60, kg, PRN, PRN Line Flush, Start date: 11/30/12 12:04:00, Duration: 30 day, Stop date: 12/30/12 12:03:00 lisinopril 20 mg, 1 tab, Route: PO, Drug form: 12/09/2012 12/10/2012 Discontinued TAB, Daily, Dosing Weight 60, kg, Start date: 12/09/12 9:00:00, Duration: 30 day, Stop date: 01/07/13 9:00:00 etomidate 20 mg, Route: IVP, ONCE, Dosing 11/30/2012 11/30/2012 Completed Weight 60, kg, Priority: STAT, Start date: 11/30/12 12:58:00, Stop date: 11/30/12 12:58:00 fentanyl 1,250 250 mL, Rate: Titrate, Dosing 11/30/2012 11/30/2012 Deleted microgram + Sodium Weight 60, kg, Route: IV, Total Chloride 0.9% Volume: 250, Duration: 30 day, Stop (titrate) 250 mL date: 12/30/12 14:45:00, Replace Every: 24 hr DuoNeb inhalation 3 mL, INHALATION, QID, 120 vial, 12/12/2012 Ordered solution Substitution Allowed, Maintenance, SOLN succinylcholine 100 mg, Route: IVP, ONCE, Dosing 11/30/2012 11/30/2012 Completed Weight 60, kg, Priority: STAT, Start date: 11/30/12 12:58:00, Stop date: 11/30/12 12:58:00 DuoNeb inhalation 3 ml, Route: INHALATION, Drug Form: 11/30/2012 11/30/2012 Completed solution SOLN, Dosing Weight 60, kg, ONCE, PRN Respiratory Protocol, Start date: 11/30/12 11:54:00, Stop date: 12/30/12 11:53:00 Ativan 0.5 mg, Route: IV, ONCE, Dosing 11/30/2012 11/30/2012 Completed Weight 60, kg, Start date: 11/30/12 14:03:00, Stop date: 11/30/12 14:03:00 DuoNeb inhalation 3 mL, Route: INHALATION, Drug Form: 11/30/2012 11/30/2012 Completed solution SOLN, Dosing Weight 60, kg, ONCE, PRN Respiratory Protocol, Start date: 11/30/12 11:54:00, Stop date: 12/30/12 11:53:00 Cardizem CD 120 mg, 1 cap, Route: PO, Drug 12/08/2012 12/10/2012 Discontinued form: ERCAP, Daily, Dosing Weight 60, kg, Start date: 12/08/12 12:25:00, Duration: 30 day, Stop date: 01/07/13 9:00:00 Sodium Chloride 0.9% 1,000 mL, Rate: 100 ml/hr, Infuse 11/30/2012 12/02/2012 Discontinued IV 1,000 mL over: 10 hr, Route: IV, Dosing Weight 60 kg, Total Volume: 1,000, Start date: 11/30/12 17:47:00, Duration: 30 day, Stop date: 12/30/12 17:46:00 insulin aspart 5 unit, 0.05 mL, Route: SUB-Q, Drug 12/04/2012 12/12/2012 Discontinued form: SOLN, TID-Before Meals, Dosing Weight 60, kg, PRN Blood Glucose Results, Start date: 12/04/12 9:07:00, Duration: 30 day, Stop date: 01/03/13 9:06:00 insulin aspart 4 unit, 0.04 mL, Route: SUB-Q, Drug 12/04/2012 12/12/2012 Discontinued form: SOLN, TID-Before Meals, Dosing Weight 60, kg, PRN Blood Glucose Results, Start date: 12/04/12 9:07:00, Duration: 30 day, Stop date: 01/03/13 9:06:00 Dextrose 50% Syringe 25 gm, 50 mL, Route: IVP, Drug 12/04/2012 12/12/2012 Discontinued Form: INJ, Dosing Weight 60, kg, PRN, PRN Blood Glucose Results, Start date: 12/04/12 9:07:00, Duration: 30 day, Stop date: 01/03/13 9:06:00 Dextrose 50% Syringe 12.5 gm, 25 mL, Route: IVP, Drug 12/04/2012 12/12/2012 Discontinued Form: INJ, Dosing Weight 60, kg, PRN, PRN Blood Glucose Results, Start date: 12/04/12 9:07:00, Duration: 30 day, Stop date: 01/03/13 9:06:00 insulin aspart 2 unit, 0.02 mL, Route: SUB-Q, Drug 12/04/2012 12/12/2012 Discontinued form: SOLN, TID-Before Meals, Dosing Weight 60, kg, PRN Blood Glucose Results, Start date: 12/04/12 9:07:00, Duration: 30 day, Stop date: 01/03/13 9:06:00 insulin aspart 1 unit, 0.01 mL, Route: SUB-Q, Drug 12/04/2012 12/12/2012 Discontinued form: SOLN, TID-Before Meals, Dosing Weight 60, kg, PRN Blood Glucose Results, Start date: 12/04/12 9:07:00, Duration: 30 day, Stop date: 01/03/13 9:06:00 insulin aspart 3 unit, 0.03 mL, Route: SUB-Q, Drug 12/04/2012 12/12/2012 Discontinued form: SOLN, TID-Before Meals, Dosing Weight 60, kg, PRN Blood Glucose Results, Start date: 12/04/12 9:07:00, Duration: 30 day, Stop date: 01/03/13 9:06:00 insulin aspart 2 unit, 0.02 mL, Route: SUB-Q, Drug 12/04/2012 12/12/2012 Discontinued form: SOLN, Bedtime, Dosing Weight 60, kg, PRN Blood Glucose Results, Start date: 12/04/12 9:07:00, Duration: 30 day, Stop date: 01/03/13 9:06:00 insulin aspart 1 unit, 0.01 mL, Route: SUB-Q, Drug 12/04/2012 12/12/2012 Discontinued form: SOLN, Bedtime, Dosing Weight 60, kg, PRN Blood Glucose Results, Start date: 12/04/12 9:07:00, Duration: 30 day, Stop date: 01/03/13 9:06:00 insulin aspart 4 unit, 0.04 mL, Route: SUB-Q, Drug 12/04/2012 12/12/2012 Discontinued form: SOLN, Bedtime, Dosing Weight 60, kg, PRN Blood Glucose Results, Start date: 12/04/12 9:07:00, Duration: 30 day, Stop date: 01/03/13 9:06:00 insulin aspart 3 unit, 0.03 mL, Route: SUB-Q, Drug 12/04/2012 12/12/2012 Discontinued form: SOLN, Bedtime, Dosing Weight 60, kg, PRN Blood Glucose Results, Start date: 12/04/12 9:07:00, Duration: 30 day, Stop date: 01/03/13 9:06:00 glucagon 1 mg, Route: IM, Drug form: 12/04/2012 12/12/2012 Discontinued PDR/INJ, PRN, Dosing Weight 60, kg, PRN Blood Glucose Results, Start date: 12/04/12 9:07:00, Duration: 30 day, Stop date: 01/03/13 9:06:00 nystatin 100,000 500,000 unit, 5 mL, Route: S&SPIT, 12/06/2012 12/12/2012 Discontinued units/mL oral Drug form: SUSP, TID, Dosing Weight suspension 60, kg, Start date: 12/06/12 13:00:00, Duration: 7 day, Stop date: 12/13/12 9:00:00 lisinopril 10 mg, 1 tab, Route: PO, Drug form: 12/05/2012 12/07/2012 Discontinued TAB, BID, Dosing Weight 60, kg, Start date: 12/05/12 21:00:00, Duration: 30 day, Stop date: 01/04/13 9:00:00 Protonix 40 mg, 1 tab, Route: PO, Drug form: 12/07/2012 12/11/2012 Discontinued ECTAB, Before Dinner, Dosing Weight 60, kg, Start date: 12/07/12 16:30:00, Duration: 30 day, Stop date: 01/05/13 16:30:00 methylPREDNISolone 40 mg, 1 mL, Route: IVP, Drug form: 12/07/2012 12/09/2012 Discontinued SODium SUCCinate INJ, Q12H, Dosing Weight 60, kg, Start date: 12/07/12 21:00:00, Duration: 30 day, Stop date: 01/06/13 9:00:00 morphine Sulfate 2 mg, 1 mL, Route: IV, Drug form: 12/03/2012 12/12/2012 Discontinued INJ, Q2H, Dosing Weight 60, kg, PRN as needed for pain, Start date: 12/03/12 11:45:00, Duration: 30 day, Stop date: 01/02/13 11:44:00 aspirin 81 mg 81 mg, 1 tab, Route: PO, Drug form: 12/05/2012 12/11/2012 Discontinued tablet, enteric CHEWTAB, Daily, Dosing Weight 60, coated kg, Start date: 12/05/12 9:00:00, Duration: 30 day, Stop date: 01/03/13 9:00:00 Spiriva 18 mcg 18 microgram, 1 ea, Route: 12/11/2012 12/11/2012 Deleted inhalation capsule INHALATION, Drug form: CAP, Daily, Dosing Weight 60, kg, Start date: 12/11/12 9:00:00, Duration: 30 day, Stop date: 01/09/13 9:00:00 D5W 1/2NS + KCL 1,000 mL, Rate: 50 ml/hr, Infuse 12/02/2012 12/04/2012 Discontinued 20mEq/L 1000ml over: 20 hr, Route: IV, Dosing (Premix) 1,000 mL Weight 60 kg, Total Volume: 1,000, Start date: 12/02/12 14:45:00, Duration: 30 day, Stop date: 01/01/13 14:44:00 Fam-24 300 mg, 1 cap, Route: PO, Drug 12/11/2012 12/12/2012 Discontinued form: ERCAP, BID, Dosing Weight 60, kg, Start date: 12/11/12 9:00:00, Duration: 30 day, Stop date: 01/09/13 17:00:00 Crestor 10 mg, 1 tab, Route: PO, Drug form: 12/11/2012 12/12/2012 Discontinued TAB, Bedtime, Dosing Weight 60, kg, Start date: 12/11/12 21:00:00, Duration: 30 day, Stop date: 01/09/13 21:00:00 methylPREDNISolone 60 mg, 1.5 mL, Route: IV, Drug 12/01/2012 12/05/2012 Discontinued form: INJ, Q8Hnow, Start date: 12/01/12 20:00:00, Duration: 30 day, Stop date: 12/31/12 12:00:00 Singulair 10 mg, Route: PO, Drug form: TAB, 12/11/2012 12/11/2012 Deleted Bedtime, Dosing Weight 60, kg, Start date: 12/11/12 21:00:00, Duration: 30 day, Stop date: 01/09/13 21:00:00 Namenda 10 mg, 2 tab, Route: PO, Drug form: 12/11/2012 12/12/2012 Discontinued TAB, BID, Dosing Weight 60, kg, Start date: 12/11/12 9:00:00, Duration: 30 day, Stop date: 01/09/13 17:00:00 levothyroxine 0.05 mg, 1 tab, Route: PO, Drug 12/11/2012 12/12/2012 Discontinued form: TAB, [id number], Dosing Weight 60, kg, Start date: 12/11/12 9:00:00, Duration: 30 day, Stop date: 01/10/13 6:30:00 Xopenex HFA 2 puff, Route: INHALATION, Drug 12/11/2012 12/11/2012 Deleted Form: AERO/A, Dosing Weight 60, kg, Q4H, PRN, Start date: 12/11/12 8:52:00, Duration: 30 day, Stop date: 01/10/13 8:51:00, wheezes lisinopril 5 mg, 1 tab, Route: PO, Drug form: 12/03/2012 12/05/2012 Discontinued TAB, BID, Dosing Weight 60, kg, Start date: 12/03/12 17:00:00, Duration: 30 day, Stop date: 01/02/13 9:00:00 Advair Diskus 500 1 inhalation, Route: INHALER, Drug 12/05/2012 12/12/2012 Discontinued mcg-50 mcg Form: AERO, Dosing Weight 60, kg, inhalation powder BID, Start date: 12/05/12 21:00:00, Duration: 30 day, Stop date: 01/04/13 9:00:00 Advair Diskus 250 1 inhalation, Route: INHALER, Drug 12/05/2012 12/05/2012 Deleted mcg-50 mcg Form: AERO, Dosing Weight 60, kg, inhalation powder BID, Start date: 12/05/12 17:00:00, Duration: 30 day, Stop date: 01/04/13 9:00:00 Versed 50 mg in NS 50 mg, 50 mL, Rate: Titrate as 11/30/2012 12/05/2012 Discontinued 50 ml (titrate) IV directed (RASS score -2), Dosing 50 mg Weight 60, kg, Route: IV, Total Volume: 50 ml, Duration: 30 day, Stop date: 12/30/12 15:59:00, Replace Every: 24 hr Spiriva 18 mcg 1 ea, Route: INHALATION, Drug form: 12/06/2012 12/12/2012 Discontinued inhalation capsule CAP, Daily, Dosing Weight 60, kg, Start date: 12/06/12 9:00:00, Duration: 30 day, Stop date: 01/04/13 9:00:00 Ativan 2 mg, 1 mL, Route: IV, Drug form: 12/02/2012 12/12/2012 Discontinued INJ, Q4H, PRN Anxiety, Start date: 12/02/12 15:02:00, Duration: 30 day, Stop date: 01/01/13 15:01:00 gabapentin 300 mg 300 mg, 1 cap, Route: PO, Drug 12/11/2012 12/12/2012 Discontinued oral capsule form: CAP, BID, Dosing Weight 60, kg, Start date: 12/11/12 9:00:00, Duration: 30 day, Stop date: 01/09/13 17:00:00 Foradil Aerolizer 0.5 mg, Route: INHALATION, Drug 12/11/2012 12/11/2012 Deleted Form: CAP, Dosing Weight 60, kg, Q12H, Start date: 12/11/12 9:00:00, Duration: 30 day, Stop date: 01/09/13 21:00:00 insulin aspart 10 unit, 0.1 mL, Route: SUB-Q, Drug 12/10/2012 12/10/2012 Completed form: SOLN, ONCE, Dosing Weight 60, kg, Start date: 12/10/12 17:25:00, Stop date: 12/10/12 17:25:00 Advair Diskus 500 1 puff, Route: INHALATION, Drug 12/11/2012 12/11/2012 Deleted mcg-50 mcg Form: AERO, Dosing Weight 60, kg, inhalation powder BID, Start date: 12/11/12 9:00:00, Duration: 30 day, Stop date: 01/09/13 17:00:00 donepezil 10 mg, 2 tab, Route: PO, Drug form: 12/11/2012 12/12/2012 Discontinued TAB, Bedtime, Dosing Weight 60, kg, Start date: 12/11/12 21:00:00, Duration: 30 day, Stop date: 01/09/13 21:00:00 carbamazepine 400 mg, 2 tab, Route: PO, Drug 12/11/2012 12/12/2012 Discontinued form: TAB, BID, Dosing Weight 60, kg, Start date: 12/11/12 9:00:00, Duration: 30 day, Stop date: 01/09/13 21:00:00 lactulose 10 g/15 mL 10 gm, 15 mL, Route: PO, Drug Form: 12/10/2012 12/12/2012 Completed oral syrup SYRP, Dosing Weight 60, kg, TID, Start date: 12/10/12 13:00:00, Stop date: 12/12/12 9:00:00 methylPREDNISolone 40 mg, 1 mL, Route: IV, Drug form: 11/30/2012 11/30/2012 Completed INJ, ONCE, Start date: 11/30/12 20:00:00, Stop date: 11/30/12 20:00:00 Ativan 1 mg, 0.5 mL, Route: IV, Drug form: 12/02/2012 12/12/2012 Discontinued INJ, Q4H, PRN Anxiety, Start date: 12/02/12 15:00:00, Duration: 30 day, Stop date: 01/01/13 14:59:00 Protonix 40 mg, Route: IVP, Drug form: INJ, 11/30/2012 12/07/2012 Discontinued Daily, Dosing Weight 60, kg, Patient is NPO, Start date: 11/30/12 21:00:00, Duration: 30 day, Stop date: 12/29/12 21:00:00 carbamazepine 200 mg, 1 tab, Route: PO, Drug 12/11/2012 12/12/2012 Discontinued form: TAB, QNoon, Dosing Weight 60, kg, Start date: 12/11/12 12:00:00, Duration: 30 day, Stop date: 01/09/13 12:00:00 magnesium sulfate 2 gm, 50 mL, Route: IVPB, Drug 11/30/2012 11/30/2012 Completed form: INJ, ONCE, Dosing Weight 60, kg, Total dose=2 gm, Start date: 11/30/12 19:36:00, Stop date: 11/30/12 19:36:00 Pulmicort Flexhaler 2 puff, Route: INHALATION, Drug 12/11/2012 12/11/2012 Deleted Form: PWDR, Dosing Weight 60, kg, BID, Start date: 12/11/12 9:00:00, Duration: 30 day, Stop date: 01/09/13 17:00:00 aspirin 81 mg 81 mg, 1 tab, Route: PO, Drug form: 12/11/2012 12/12/2012 Discontinued tablet, enteric ECTAB, Daily, Dosing Weight 60, kg, coated Start date: 12/11/12 9:00:00, Duration: 30 day, Stop date: 01/09/13 9:00:00 Proventil HFA 90 2 puff, Route: INHALATION, Drug 12/11/2012 12/12/2012 Discontinued mcg/inh inhalation Form: AERO/A, Dosing Weight 60, kg, aerosol with adapter RQID, PRN Wheezing, Start date: 12/11/12 8:52:00, Duration: 30 day, Stop date: 01/10/13 8:51:00, kerri lisinopril 20 mg, 1 tab, Route: PO, Drug form: 12/07/2012 12/08/2012 Discontinued TAB, BID, Dosing Weight 60, kg, Start date: 12/07/12 21:00:00, Duration: 30 day, Stop date: 01/06/13 9:00:00 Sodium Chloride 0.9% 1,000 mL, Rate: 100 ml/hr, Infuse 12/10/2012 12/10/2012 Completed IV 1,000 mL over: 10 hr, Route: IV, Dosing Weight 60 kg, Total Volume: 1,000, Start date: 12/10/12 10:19:00, Duration: 1 doses or times, Stop date: 12/10/12 20:18:00 Lasix 60 mg, 6 mL, Route: IV, Drug form: 12/02/2012 12/02/2012 Completed INJ, ONCE, Start date: 12/02/12 14:59:00, Stop date: 12/02/12 14:59:00 Protonix 40 mg, Route: PO, Daily, Dosing 11/30/2012 11/30/2012 Discontinued Weight 60, kg, Priority: NOW, Start date: 11/30/12 15:59:00, Duration: 30 day, Stop date: 12/30/12 9:00:00 fentanyl 1,250 250 mL, Rate: Titrate., Dosing 11/30/2012 11/30/2012 Deleted microgram + Sodium Weight 60, kg, Route: IV, Total Chloride 0.9% Volume: 250, Duration: 30 day, Stop (titrate) 250 mL date: 12/30/12 20:25:00, Replace Every: 24 hr propofol 10 mg/ml 100 mL, Rate: 10 mcg/kg/min.Titrate 11/30/2012 11/30/2012 Deleted (titrate) 100 mL to maintain goal RASS score., Dosing Weight 60, kg, Route: IV, Total Volume: 100, Start date: 11/30/12 20:20:00, Duration: 30 day, Stop date: 12/30/12 20:19:00, Replace Every: 24 hr Cepacol Lozenge 1 lozenge, Route: MUCOUS MEM, Q2H, 12/11/2012 12/11/2012 Deleted Drug form: MANJINDER, PRN Sore Throat, Start date: 12/11/12 16:53:00, Duration: 30 day, Stop date: 01/10/13 16:52:00 predniSONE 10 mg, 1 tab, Route: PO, Drug form: 12/13/2012 12/12/2012 Canceled TAB, Daily, Dosing Weight 60, kg, Start date: 12/13/12 9:00:00, Duration: 14 day, Stop date: 12/26/12 9:00:00 Protonix 40 mg, 1 tab, Route: PO, Drug form: 12/11/2012 12/12/2012 Discontinued ECTAB, BID, Dosing Weight 60, kg, Start date: 12/11/12 17:00:00, Duration: 30 day, Stop date: 01/10/13 9:00:00 Pulmicort Respules 1 0.5 mg, 2 mL, Route: NEB, Drug 12/01/2012 12/12/2012 Discontinued mg/2 mL inhalation form: Nat SCHULTZ, Dosing Weight suspension 60, kg, Start date: 12/01/12 8:00:00, Duration: 30 day, Stop date: 12/30/12 8:00:00 Haldol 0.5 mg, 1 tab, Route: PO, Drug 12/03/2012 12/12/2012 Discontinued form: TAB, QID, Dosing Weight 60, kg, PRN Agitation, Start date: 12/03/12 8:14:00, Duration: 30 day, Stop date: 01/02/13 8:13:00 Tylenol 650 mg, 2 tab, Route: PO, Drug 12/06/2012 12/12/2012 Discontinued form: TAB, Q4H, Dosing Weight 60, kg, PRN Fever, Start date: 12/06/12 11:36:00, Duration: 30 day, Stop date: 01/05/13 11:35:00 ciprofloxacin 250 mg, 1 tab, Route: PO, Drug 12/12/2012 12/12/2012 Canceled form: TAB, [id number], Dosing Weight 60, kg, Start date: 12/12/12 18:00:00, Duration: 7 day, Stop date: 12/19/12 6:00:00 famotidine 20 mg, Route: IVP, Drug form: INJ, 11/30/2012 11/30/2012 Canceled Q12H, Dosing Weight 60, kg, Start date: 11/30/12 21:00:00, Duration: 30 day, Stop date: 12/30/12 9:00:00 SoluMedrol 40 mg, 1 mL, Route: IVP, Drug form: 11/30/2012 12/01/2012 Discontinued INJ, Q6H, Dosing Weight 60, kg, Start date: 11/30/12 18:00:00, Duration: 30 day, Stop date: 12/30/12 12:00:00 magnesium sulfate 1 gm, 50 mL, Route: IVPB, Drug 11/30/2012 11/30/2012 Deleted form: INJ, ONCE, Dosing Weight 60, kg, Total dose=2 gm, Start date: 11/30/12 15:57:00, Duration: 1 doses or times, Stop date: 11/30/12 15:57:00 predniSONE 10 mg 20 mg, 2 tab, PO, Daily, 15 tab, 12/12/2012 Ordered oral tablet Substitution Allowed, TAB pantoprazole 40 mg 40 mg, 1 tab, PO, Daily, 30 tab, 12/12/2012 Ordered oral enteric coated Substitution Allowed, ECTAB tablet Stromectol 12 mg, 4 tab, Route: PO, Drug form: 12/02/2012 12/03/2012 Completed TAB, [id number], Start date: 12/02/12 16:00:00, Duration: 2 day, Stop date: 12/03/12 16:00:00 methylPREDNISolone 40 mg, 1 mL, Route: IVP, Drug form: 12/10/2012 12/12/2012 Discontinued SODium SUCCinate INJ, Daily, Dosing Weight 60, kg, Start date: 12/10/12 9:00:00, Duration: 30 day, Stop date: 01/08/13 9:00:00 Sodium Chloride 0.9% 1,000 mL, Rate: 1,000 ml/hr, Infuse 11/30/2012 11/30/2012 Completed (Bolus) IV 1000 mL over: 1 hr, Route: IV, Dosing Weight 60 kg, Total Volume: 1,000, Priority: STAT, Start date: 11/30/12 15:57:00, Duration: 1 doses or times, Stop date: 11/30/12 16:56:00, Bolus Dose Bolus Dose ciprofloxacin 250 mg 250 mg, 1 tab, PO, [id number], 10 tab, 12/12/2012 Ordered oral tablet Substitution Allowed, TAB Singulair 10 mg oral 10 mg, 1 tab, PO, Bedtime, 30 tab, 11/30/2012 Ordered tablet Substitution Allowed, TAB donepezil 10 mg oral 10 mg, 1 tab, PO, Bedtime, 30 tab, 11/30/2012 Ordered tablet Substitution Allowed, TAB DuoNeb inhalation 3 mL, Route: INHALATION, Drug Form: 11/30/2012 12/12/2012 Discontinued solution SOLN, Dosing Weight 60, kg, [id number], Start date: 11/30/12 19:00:00, Duration: 30 day, Stop date: 12/30/12 15:00:00 Tears Naturale 1 drp, Route: Each Affected Eye, 12/07/2012 12/12/2012 Discontinued TID, Drug form: SOLN, Start date: 12/07/12 13:00:00, Duration: 30 day, Stop date: 01/06/13 9:00:00 Lovenox 40 mg, 0.4 mL, Route: SUB-Q, Drug 11/30/2012 12/12/2012 Discontinued form: INJ, [id number], Dosing Weight 60, kg, Start date: 11/30/12 16:00:00, Duration: 30 day, Stop date: 12/29/12 16:00:00 Peridex 0.12% 15 ml, Route: S&SPIT, BID, Drug 11/30/2012 12/12/2012 Discontinued topical liquid form: LIQ, Start date: 11/30/12 17:00:00, Duration: 30 day, Stop date: 12/30/12 9:00:00 1/2 NS 1,000 mL 1,000 mL, Rate: 50 ml/hr, Infuse 12/04/2012 12/07/2012 Discontinued over: 20 hr, Route: IV, Dosing Weight 60 kg, Total Volume: 1,000, Start date: 12/04/12 9:09:00, Duration: 30 day, Stop date: 01/03/13 9:08:00 Immunizations Vaccine Date Status pneumococcal 23-valent vaccine 12/01/2012 Auth (Verified) Vital Signs Most recent to oldest [Reference Range]: 1 2 3 Height 157.48 cm (11/30/2012 11:51:00) Current Weight 53.807 kg (12/12/2012 04:47:00) 60.199 kg (12/10/2012 04:44:00) 60.727 kg (12/09/2012 07:20:00) Temperature Oral [96.4-99.1 DegF] 98.1 DegF (12/12/2012 12:19:00) 98.9 DegF (12/12/2012 08:15:00) 99.0 DegF (12/12/2012 04:46:00) Systolic Blood Pressure [90-140 mmHg] 109 mmHg (12/12/2012 12:19:00) 91 mmHg (12/12/2012 08:15:00) 92 mmHg (12/12/2012 04:46:00) Diastolic Blood Pressure [60-90 mmHg] 74 mmHg (12/12/2012 12:19:00) 57 mmHg *LOW* (12/12/2012 08:15:00) 58 mmHg *LOW* (12/12/2012 04:46:00) Respiratory Rate [14-20 BRMIN] 16 BRMIN (12/12/2012 12:19:00) 14 BRMIN (12/12/2012 08:18:00) 14 BRMIN (12/12/2012 08:15:00) Peripheral Pulse Rate [60-100 bpm] 118 bpm *HI* (12/12/2012 12:19:00) 92 bpm (12/12/2012 08:15:00) 81 bpm (12/12/2012 04:46:00) Weight 60 kg (11/30/2012 11:51:00) Results BACTERIAL - SEROLOGY Most recent to oldest [Reference Range]: 1 2 3 MRSA by PCR Negative 1 (11/30/2012 20:12:46) 1Interpretive Data: Interpretive Data: The [facility] [employer] [...] reaction (PCR) assay detects a proprietary sequence indicat leena of the integration of the SCCmec cassette into the Staphylococcus aureus chr omosome, indicating the presence of MRSA DNA. The assay utilizes FDA cleared IV D reagents. Performance characteristics have been verified by the [facility] within the [facility]. The [facility] is authorized under the Clinical Laboratory Improvement Amendment of 1 988 (CLIA-88) to perform high complexity testing. BEDSIDE GLUCOSE TESTING Most recent to oldest [Reference Range]: 1 2 3 Gluc POC Lifscn [70-99 mg/dL] 287 mg/dL 2 *HI* (12/12/2012 11:39:00) 156 mg/dL 3 *HI* (12/12/2012 08:00:00) 234 mg/dL 4 *HI* (12/11/2012 19:56:00) Comment1 Notify RN/MD *NA* (12/11/2012 19:56:00) Assess patient *NA* (12/11/2012 17:04:00) Assess patient *NA* (12/11/2012 12:26:00) Comment2 Notify RN/MD *NA* (12/11/2012 17:04:00) Notify RN/MD *NA* (12/11/2012 12:26:00) Notify RN/MD *NA* (12/11/2012 08:24:00) 2Interpretive Data: Upper Reportable Limit: 200 mg/dL. 3Interpretive Data: Upper Reportable Limit: 200 mg/dL. 4Interpretive Data: Upper Reportable Limit: 200 mg/dL. URINALYSIS Most recent to oldest [Reference Range]: 1 2 3 UA Turbidity [Clear] Slight *ABN* (11/30/2012 13:00:30) UA Color [Yellow] Yellow *NA* (11/30/2012 13:00:30) UA pH [5.0-8.0] 5.0 (11/30/2012 13:00:30) UA Spec Grav [<=1.030] 1.022 (11/30/2012 13:00:30) UA Glucose [Negative mg/dL] Negative mg/dL *NA* (11/30/2012 13:00:30) UA Blood [Negative] Negative (11/30/2012 13:00:30) UA Ketones [Negative mg/dL] Negative mg/dL *NA* (11/30/2012 13:00:30) UA Protein [Negative mg/dL] >=300 mg/dL *ABN* (11/30/2012 13:00:30) UA Urobilinogen [0.1-1.0 mg/dL] <=1.0 mg/dL *NA* (11/30/2012 13:00:30) UA Bili [Negative] Negative *NA* (11/30/2012 13:00:30) UA Leuk Est [Negative] Negative (11/30/2012 13:00:30) UA Nitrite [Negative] Negative (11/30/2012 13:00:30) UA WBC [0-5 /HPF] 1 /HPF (11/30/2012 13:00:30) UA RBC [0-2 /HPF] <1 /HPF (11/30/2012 13:00:30) UA Sq Epi [Few /LPF] Occasional /LPF *NA* (11/30/2012 13:00:30) UA Mucus [None Seen /LPF] Few /LPF *NA* (11/30/2012 13:00:30) VIRAL - SEROLOGY Most recent to oldest [Reference Range]: 1 2 3 Influ A [Negative] Negative (11/30/2012 13:35:00) Influ B [Negative] Negative 5 (11/30/2012 13:35:00) 5Interpretive Data: Due to the low sensitivity of this test a negative result does not exclude influenza virus infection. A diagnosis of influenza should be considered based on a patient's clinical presentation and empiric antiviral treatment should be considered, if indicated. If more conclusive testing is desired, follow-up confirmatory testing with either viral culture or PCR is warranted. CHEMISTRY Most recent to oldest [Reference Range]: 1 2 3 Sodium Lvl [135-145 mEq/L] 140 mEq/L (12/12/2012 11:27:00) 144 mEq/L (12/08/2012 05:01:00) 145 mEq/L (12/06/2012 03:52:00) Potassium Lvl [3.5-5.1 mEq/L] 3.5 mEq/L (12/12/2012 11:27:00) 4.0 mEq/L (12/08/2012 05:01:00) 3.6 mEq/L (12/06/2012 03:52:00) Chloride Lvl [95-109 mEq/L] 103 mEq/L (12/12/2012 11:27:00) 105 mEq/L (12/08/2012 05:01:00) 109 mEq/L (12/06/2012 03:52:00) CO2 [24-32 mEq/L] 26 mEq/L (12/12/2012 11:27:00) 29 mEq/L (12/08/2012 05:01:00) 28 mEq/L (12/06/2012 03:52:00) AGAP [10.0-20.0 mEq/L] 14.5 mEq/L (12/12/2012 11:27:00) 14.0 mEq/L (12/08/2012 05:01:00) 11.6 mEq/L (12/06/2012 03:52:00) Creatinine Lvl [0.5-1.4 mg/dL] 0.7 mg/dL (12/12/2012 11:27:00) 0.5 mg/dL (12/08/2012 05:01:00) 0.4 mg/dL *LOW* (12/06/2012 03:52:00) eGFR 85 mL/min/1.73m2 6 *NA* (12/12/2012 11:27:00) 95 mL/min/1.73m2 7 *NA* (12/08/2012 05:01:00) 102 mL/min/1.73m2 8 *NA* (12/06/2012 03:52:00) BUN [7-22 mg/dL] 20 mg/dL (12/12/2012 11:27:00) 22 mg/dL (12/08/2012 05:01:00) 12 mg/dL (12/06/2012 03:52:00) B/C Ratio [6-25] 28 *HI* (12/01/2012 06:04:00) 22 (11/30/2012 12:30:00) Glucose Lvl [70-99 mg/dL] 263 mg/dL 9 *HI* (12/12/2012 11:27:00) 171 mg/dL 10 *HI* (12/08/2012 05:01:00) 157 mg/dL 11 *HI* (12/06/2012 03:52:00) Total Protein [6.4-8.4 g/dL] 5.9 g/dL *LOW* (12/01/2012 06:04:00) 7.9 g/dL (11/30/2012 12:30:00) Albumin Lvl [3.5-5.0 g/dL] 3.1 g/dL *LOW* (12/01/2012 06:04:00) 4.0 g/dL (11/30/2012 12:30:00) Globulin [2.0-4.0 g/dL] 2.8 g/dL (12/01/2012 06:04:00) 3.9 g/dL (11/30/2012 12:30:00) A/G Ratio [0.7-1.6] 1.1 (12/01/2012 06:04:00) 1.0 (11/30/2012 12:30:00) Calcium Lvl [8.5-10.5 mg/dL] 8.2 mg/dL *LOW* (12/12/2012 11:27:00) 8.7 mg/dL (12/08/2012 05:01:00) 8.3 mg/dL *LOW* (12/06/2012 03:52:00) Phosphorus [2.5-4.5 mg/dL] 2.5 mg/dL (12/06/2012 03:52:00) 2.1 mg/dL *LOW* (12/01/2012 06:04:00) Magnesium Lvl [1.8-2.4 mg/dL] 1.9 mg/dL (12/08/2012 05:01:00) 2.1 mg/dL (12/06/2012 03:52:00) 1.8 mg/dL (12/04/2012 04:04:00) ALT [0-65 unit/L] 14 unit/L (12/01/2012 06:04:00) 17 unit/L (11/30/2012 12:30:00) AST [0-37 unit/L] 20 unit/L (12/01/2012 06:04:00) 20 unit/L (11/30/2012 12:30:00) Alk Phos [39-136 unit/L] 106 unit/L (12/01/2012 06:04:00) 146 unit/L *HI* (11/30/2012 12:30:00) Bili Total [0.2-1.3 mg/dL] 0.2 mg/dL (12/01/2012 06:04:00) 0.1 mg/dL *LOW* (11/30/2012 12:30:00) Lactic Acid Lvl [0.5-2.2 mMol/L] 1.7 mMol/L (11/30/2012 13:12:40) Total CK [12-191 unit/L] 130 unit/L (11/30/2012 12:30:00) CK MB [0.5-3.6 ng/mL] 2.0 ng/mL (11/30/2012 12:30:00) CK MB Index [0.0-2.5] 1.5 (11/30/2012 12:30:00) Troponin-I [0.00-0.40 ng/mL] <0.02 ng/mL (11/30/2012 12:30:00) BNP [<=100 pg/mL] 44 pg/mL 12 (12/08/2012 05:01:00) 150 pg/mL 13 *HI* (12/06/2012 03:52:00) 254 pg/mL 14 *HI* (12/04/2012 04:04:00) CHD Risk [3.90-5.80] 1.91 *LOW* (12/01/2012 06:04:00) Chol [<=199 mg/dL] 170 mg/dL (12/01/2012 06:04:00) Trig [<=149 mg/dL] 69 mg/dL (12/01/2012 06:04:00) HDL [>=61 mg/dL] 89 mg/dL (12/01/2012 06:04:00) LDL [<=99 mg/dL] 67 mg/dL (12/01/2012 06:04:00) TSH [0.360-3.740 uIU/mL] 0.972 uIU/mL (12/01/2012 06:04:00) Theoph Lvl [10.0-20.0 ug/ml] 18.5 ug/ml (12/12/2012 11:27:00) pH Art [7.35-7.45] 7.46 *HI* (12/05/2012 12:15:00) 7.44 (12/01/2012 04:42:01) 7.23 *LOW* (11/30/2012 14:02:00) pCO2 Art [35-45 mmHg] 40 mmHg (12/05/2012 12:15:00) 34 mmHg *LOW* (12/01/2012 04:42:01) 68 mmHg 15 *CRIT* (11/30/2012 14:02:00) pO2 Art [80-100 mmHg] 114 mmHg *HI* (12/05/2012 12:15:00) 291 mmHg *HI* (12/01/2012 04:42:01) 435 mmHg *HI* (11/30/2012 14:02:00) HCO3 Art [22-26 mMol/L] 28 mMol/L *HI* (12/05/2012 12:15:00) 23 mMol/L (12/01/2012 04:42:01) 28 mMol/L *HI* (11/30/2012 14:02:00) BE Art [-2-2 mMol/L] 4 mMol/L *HI* (12/05/2012 12:15:00) 0 mMol/L (12/01/2012 04:42:01) -1 mMol/L (11/30/2012 14:02:00) O2 Sat Art [95.0-100.0 %] 98.7 % (12/05/2012 12:15:00) 99.9 % (12/01/2012 04:42:01) 100.0 % (11/30/2012 14:02:00) Site Art Left Rad (12/05/2012 12:15:00) Right Ra (12/01/2012 04:42:01) Temp Art 37.0 DegC *NA* (12/05/2012 12:15:00) 37.0 DegC *NA* (12/01/2012 04:42:01) 37.0 DegC *NA* (11/30/2012 14:02:00) Allens Art Positive (12/05/2012 12:15:00) Positive (12/01/2012 04:42:01) Flow Art 10.0 *NA* (12/05/2012 12:15:00) Mode Art See Note (12/05/2012 12:15:00) A/C (12/01/2012 04:42:01) A/C (11/30/2012 14:02:00) Rate Art 12 *NA* (12/01/2012 04:42:01) 12 *NA* (11/30/2012 14:02:00) Vt Art 400 *NA* (12/01/2012 04:42:01) 400 *NA* (11/30/2012 14:02:00) FiO2 Art 30.0 *NA* (12/05/2012 12:15:00) 60.0 *NA* (12/01/2012 04:42:01) 100.0 *NA* (11/30/2012 14:02:00) PEEP Art 5.0 *NA* (12/01/2012 04:42:01) 5.0 *NA* (11/30/2012 14:02:00) 6Result Comment: The eGFR is calculated using [...] be mul tiplied by the estimated BMI. 7Result Comment: The eGFR is calculated using [...] be mul tiplied by the estimated BMI. 8Result Comment: The eGFR is calculated using [...] be mul tiplied by the estimated BMI. 9Interpretive Data: Adult reference range values reflect the clinical guidelines of the [place] [employer]. 10Interpretive Data: Adult reference range values reflect the clinical guidelines of the [place] [employer]. 11Interpretive Data: Adult reference range values reflect the clinical guidelines of the [place] [employer]. 12Interpretive Data: Elevated results are in line with increasing severity of congestive heart failure. Minor elevations between 100 and 300 may be seen with Myocardial Ischemia, Sodium retaining drugs, and compensated/treated heart failure. 13Interpretive Data: Elevated results are in line with increasing severity of congestive heart failure. Minor elevations between 100 and 300 may be seen with Myocardial Ischemia, Sodium retaining drugs, and compensated/treated heart failure. 14Interpretive Data: Elevated results are in line with increasing severity of congestive heart failure. Minor elevations between 100 and 300 may be seen with Myocardial Ischemia, Sodium retaining drugs, and compensated/treated heart failure. 15Result Comment: Critical Result(s) called to bk Oliveira at 11/30/2012 14:14 by hb. Read back OK. HEMATOLOGY Most recent to oldest [Reference Range]: 1 2 3 WBC [3.7-10.4 K/CMM] 10.5 K/CMM *HI* (12/12/2012 11:27:00) 5.9 K/CMM (12/08/2012 05:01:00) 5.8 K/CMM (12/06/2012 03:52:00) RBC [4.20-5.40 M/CMM] 3.36 M/CMM *LOW* (12/12/2012 11:27:00) 3.99 M/CMM *LOW* (12/08/2012 05:01:00) 3.76 M/CMM *LOW* (12/06/2012 03:52:00) Hgb [12.0-16.0 g/dL] 9.8 g/dL *LOW* (12/12/2012 11:27:00) 11.4 g/dL *LOW* (12/08/2012 05:01:00) 10.9 g/dL *LOW* (12/06/2012 03:52:00) Hct [36.0-48.0 %] 30.5 % *LOW* (12/12/2012 11:27:00) 35.2 % *LOW* (12/08/2012 05:01:00) 33.9 % *LOW* (12/06/2012 03:52:00) MCV [81.0-99.0 fL] 90.8 fL (12/12/2012 11:27:00) 88.4 fL (12/08/2012 05:01:00) 90.1 fL (12/06/2012 03:52:00) MCH [27.0-31.0 pg] 29.3 pg (12/12/2012 11:27:00) 28.5 pg (12/08/2012 05:01:00) 28.9 pg (12/06/2012 03:52:00) MCHC [32.0-36.0 g/dL] 32.3 g/dL (12/12/2012 11:27:00) 32.2 g/dL (12/08/2012 05:01:00) 32.1 g/dL (12/06/2012 03:52:00) RDW [11.5-14.5 %] 16.3 % *HI* (12/12/2012 11:27:00) 15.6 % *HI* (12/08/2012 05:01:00) 15.8 % *HI* (12/06/2012 03:52:00) Platelet [133-450 K/CMM] 197 K/CMM (12/12/2012 11:27:00) 191 K/CMM (12/08/2012 05:01:00) 181 K/CMM (12/06/2012 03:52:00) MPV [7.4-10.4 fL] 7.1 fL *LOW* (12/12/2012 11:27:00) 7.4 fL (12/08/2012 05:01:00) 7.6 fL (12/06/2012 03:52:00) Segs [45.0-75.0 %] 93.0 % *HI* (12/12/2012 11:27:00) 85.8 % *HI* (12/08/2012 05:01:00) 78.9 % *HI* (12/06/2012 03:52:00) Lymphocytes [20.0-40.0 %] 3.5 % *LOW* (12/12/2012 11:27:00) 8.7 % *LOW* (12/08/2012 05:01:00) 11.4 % *LOW* (12/06/2012 03:52:00) Monocytes [2.0-12.0 %] 3.4 % (12/12/2012 11:27:00) 5.2 % (12/08/2012 05:01:00) 9.4 % (12/06/2012 03:52:00) Eosinophils [0.0-4.0 %] 0.0 % (12/12/2012 11:27:00) 0.0 % (12/08/2012 05:01:00) 0.1 % (12/06/2012 03:52:00) Basophils [0.0-1.0 %] 0.1 % (12/12/2012 11:27:00) 0.3 % (12/08/2012 05:01:00) 0.2 % (12/06/2012 03:52:00) Segs-Bands # [1.5-8.1 K/CMM] 9.7 K/CMM *HI* (12/12/2012 11:27:00) 5.0 K/CMM (12/08/2012 05:01:00) 4.6 K/CMM (12/06/2012 03:52:00) Lymphocytes # [1.0-5.5 K/CMM] 0.4 K/CMM *LOW* (12/12/2012 11:27:00) 0.5 K/CMM *LOW* (12/08/2012 05:01:00) 0.7 K/CMM *LOW* (12/06/2012 03:52:00) Monocytes # [0.0-0.8 K/CMM] 0.4 K/CMM (12/12/2012 11:27:00) 0.3 K/CMM (12/08/2012 05:01:00) 0.5 K/CMM (12/06/2012 03:52:00) Eosinophils # [0.0-0.5 K/CMM] 0.0 K/CMM (12/12/2012 11:27:00) 0.0 K/CMM (12/08/2012 05:01:00) 0.0 K/CMM (12/06/2012 03:52:00) Basophils # [0.0-0.2 K/CMM] 0.0 K/CMM (12/12/2012 11:27:00) 0.0 K/CMM (12/08/2012 05:01:00) 0.0 K/CMM (12/06/2012 03:52:00) RBC Morph Normal (12/12/2012 11:27:00) Plt Morph Normal (12/12/2012 11:27:00) Eos Smear [None Seen] Occasional (11/30/2012 16:14:00) PT [12.0-14.7 seconds] 13.1 seconds (11/30/2012 12:30:00) INR [0.85-1.17] 0.97 16 (11/30/2012 12:30:00) PTT [22.9-35.8 seconds] 27.4 seconds 17 (11/30/2012 12:30:00) 16Interpretive Data: RECOMMENDED RANGES FOR PROTIME INR: 2.0-3.0 for most medical and surgical thromboembolic states. 2.5-3.5 for artificial heart valves and recurrent embolism. INR SHOULD BE USED ONLY FOR PATIENTS ON STABLE ANTICOAGULANT THERAPY. 17Interpretive Data: Heparin Therapeutic Range: 57 - 92 Seconds IMMUNOLOGY Most recent to oldest [Reference Range]: 1 2 3 IgE Lvl [10.0-100.0 IU/mL] 79.7 IU/mL (11/30/2012 12:30:22) Microbiology Reports PROCEDURE:Gram Stain STATUS: Auth (Verified) BODY SITE: COLLECTED DATE/TIME: 12/03/2012 07:06:00 SOURCE: Sputum FREE TEXT SOURCE: FINAL REPORTS Final Report Good Quality Specimen Less Than 25 Squamous Epithelial Cells/Lpf Rare WBC's Rare Gram Positive Cocci In Pairs PROCEDURE:Culture: Respiratory w/Gram Stain STATUS: Auth (Verified) BODY SITE: COLLECTED DATE/TIME: 12/03/2012 07:06:00 SOURCE: Sputum FREE TEXT SOURCE: FINAL REPORTS Final Report Few Yeast Normal Respiratory Rachael Isolated PRELIMINARY REPORTS Preliminary Report No Growth; Holding STAIN REPORTS Stain Report Gram Stain Performed By: [facility] PROCEDURE:Gram Stain STATUS: Auth (Verified) BODY SITE: COLLECTED DATE/TIME: 12/02/2012 14:30:00 SOURCE: Sputum FREE TEXT SOURCE: FINAL REPORTS Final Report Greater Than 25 Squamous Epithelial Cells/Lpf Poor Quality Specimen. The Number Of Squamous Epithelial Cells Suggest That The Specimen Is Primarily Mouth Rachael And Not Lower Respiratory Secretions. Please Recollect (Consider Using Induced Sputum Collection) Or Consult Microbiology If Clinical Considerations Warrant Further Processing Of This Specimen. Phone Report Made To: Add Freetext At: Add Freetext Called By: Sputum Specimen Rejected. Criteria For Rejection Include Read Back Ok called to fumit at 12/02/2012 16:27:52 PROCEDURE:Culture: Blood STATUS: Auth (Verified) BODY SITE: Right Hand COLLECTED DATE/TIME: 11/30/2012 13:50:26 SOURCE: Blood FREE TEXT SOURCE: FINAL REPORTS Final Report No Growth At 5 Days PRELIMINARY REPORTS Preliminary Report No Growth At 3 Days Preliminary Report No Growth At 4 Days Preliminary Report No Growth At 2 Days Preliminary Report No Growth; Holding Preliminary Report No Growth At 1 Day PROCEDURE:Gram Stain STATUS: Auth (Verified) BODY SITE: COLLECTED DATE/TIME: 11/30/2012 13:43:00 SOURCE: Sputum FREE TEXT SOURCE: FINAL REPORTS Final Report Good Quality Specimen Less Than 25 Squamous Epithelial Cells/Lpf Rare WBC's Rare Gram Positive Cocci In Pairs PROCEDURE:Culture: Respiratory w/Gram Stain STATUS: Auth (Verified) BODY SITE: COLLECTED DATE/TIME: 11/30/2012 13:43:00 SOURCE: Sputum FREE TEXT SOURCE: FINAL REPORTS Final Report No Growth PRELIMINARY REPORTS Preliminary Report No Growth; Holding STAIN REPORTS Stain Report Gram Stain Performed By: [facility] PROCEDURE:Culture: Blood STATUS: Auth (Verified) BODY SITE: Left Hand COLLECTED DATE/TIME: 11/30/2012 13:30:18 SOURCE: Blood FREE TEXT SOURCE: FINAL REPORTS Final Report No Growth At 5 Days PRELIMINARY REPORTS Preliminary Report No Growth At 1 Day Preliminary Report No Growth At 3 Days Preliminary Report No Growth; Holding Preliminary Report No Growth At 4 Days Preliminary Report No Growth At 2 Days
--- OUTSIDE RECORDS SUMMARY | 2018-07-25 20:59 | XMS REPORT | Summary of Care ---
Author Author [facility] Organization [facility] Address Unknown Phone Unavailable Encounter JULIAN Harris(ANGEL) [id number] Date(s): 04/20/17 - 04/20/17 [facility] [address] [place] [address]- Discharge Diagnosis: Acute bronchitis, viral Discharge Disposition: Home or Self Care Attending Physician: Shanice Isaac DO Vital Signs Most recent to 1 2 oldest [Reference Range]: Height 152.4 cm (04/20/17 1:35 PM) Temperature Oral 99.1 DegF 99.5 DegF [96.4-99.1 DegF] (04/20/17 9:51 PM) *HI* (04/20/17 1:35 PM) Blood Pressure 128/75 mmHg 123/80 mmHg [90-140/60-90 mmHg] (04/20/17 9:51 PM) (04/20/17 1:35 PM) Respiratory Rate 18 BRMIN 18 BRMIN [14-20 BRMIN] (04/20/17 9:51 PM) (04/20/17 1:35 PM) Peripheral Pulse 90 bpm 92 bpm Rate [60-100 bpm] (04/20/17 9:51 PM) (04/20/17 1:35 PM) Weight 59.091 kg (04/20/17 1:35 PM) Body Mass Index 25.44 m2 (04/20/17 1:35 PM) Problem List Condition Effective Dates Status Health Status Informant Alzheimer's Active disease(Confirmed) Asthma(Confirmed) Active Asthma(Confirmed) Active COPD - Chronic Active obstructive pulmonary disease(Confirmed) Diabetes Active mellitus(Confirmed) Diabetes(Confirmed) Resolved DM - Diabetes Active mellitus(Confirmed) Hypercholesterolemia Active (Confirmed) Hypertension(Confirm Active ed) 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) Allergies, Adverse Reactions, Alerts Substance Reaction Severity Status NKDA NKDA Active Medications Saline Flush 0.9% 10 mL, Route: IVP, Drug Form: INJ, Dosing Weight 60.909, kg, PRN, PRN Line Flush , Start date: 04/20/17 13:38:00 [employer], Duration: 30 day, Stop date: 05/20/17 13:37 :00 RETAIL PHARMACY MANAGER Notes: (Same as: BD Posiflush) Start Date: 04/20/17 Stop Date: 04/20/17 Status: Discontinued TamiFLU 75 mg oral capsule 75 mg, PO, Q12H, X 5 day, # 10 cap, 0 Refill(s) Start Date: 04/20/17 Stop Date: 04/25/17 Status: Ordered Results ELECTROLYTES Most recent to 1 oldest [Reference Range]: Sodium Lvl [135-145 136 mEq/L mEq/L] (04/20/17 1:51 PM) Potassium Lvl 4.0 mEq/L [3.5-5.1 mEq/L] (04/20/17 1:51 PM) Chloride Lvl [95-109 99 mEq/L mEq/L] (04/20/17 1:51 PM) CO2 [24-32 mEq/L] 28 mEq/L (04/20/17 1:51 PM) AGAP [10.0-20.0 13.0 mEq/L mEq/L] (04/20/17 1:51 PM) CHEM PANEL Most recent to 1 oldest [Reference Range]: Creatinine Lvl 0.56 mg/dL [0.50-1.40 mg/dL] (04/20/17 1:51 PM) eGFR 89 mL/min/1.73m2 1 *NA* (04/20/17 1:51 PM) BUN [7-22 mg/dL] 8 mg/dL (04/20/17 1:51 PM) B/C Ratio [6-25] 14 (04/20/17 1:51 PM) Glucose Lvl [70-99 107 mg/dL mg/dL] *HI* (04/20/17 1:51 PM) Total Protein 7.9 g/dL [6.4-8.4 g/dL] (04/20/17 1:51 PM) Albumin Lvl [3.5-5.0 3.6 g/dL g/dL] (04/20/17 1:51 PM) Globulin [2.7-4.2 4.3 g/dL g/dL] *HI* (04/20/17 1:51 PM) A/G Ratio [0.7-1.6] 0.8 (04/20/17 1:51 PM) Calcium Lvl 8.0 mg/dL [8.5-10.5 mg/dL] *LOW* (04/20/17 1:51 PM) ALT [0-65 unit/L] 23 unit/L (04/20/17 1:51 PM) AST [0-37 unit/L] 38 unit/L *HI* (04/20/17 1:51 PM) Alk Phos [39-136 77 unit/L unit/L] (04/20/17 1:51 PM) Bili Total [0.2-1.3 0.4 mg/dL mg/dL] (04/20/17 1:51 PM) 1Result Comment: The eGFR is calculated [...] Most recent to 1 oldest [Reference Range]: Total CK [12-191 103 unit/L unit/L] (04/20/17 1:51 PM) CK MB [0.5-3.6 0.6 ng/mL ng/mL] (04/20/17 1:51 PM) CK MB Index 0.6 [0.0-2.5] (04/20/17 1:51 PM) Troponin-I <0.02 ng/mL [0.00-0.40 ng/mL] (04/20/17 1:51 PM) HEMATOLOGY Most recent to 1 oldest [Reference Range]: WBC [3.7-10.4 K/CMM] 7.9 K/CMM (04/20/17 1:51 PM) RBC [4.20-5.40 3.68 M/CMM M/CMM] *LOW* (04/20/17 1:51 PM) Hgb [12.0-16.0 g/dL] 12.6 g/dL (04/20/17 1:51 PM) Hct [36.0-48.0 %] 36.7 % (04/20/17 1:51 PM) MCV [80.0-98.0 fL] 99.8 fL *HI* (04/20/17 1:51 PM) MCH [27.0-31.0 pg] 34.2 pg *HI* (04/20/17 1:51 PM) MCHC [32.0-36.0 34.3 g/dL g/dL] (04/20/17 1:51 PM) RDW [11.5-14.5 %] 13.7 % (04/20/17 1:51 PM) Platelet [133-450 167 K/CMM K/CMM] (04/20/17 1:51 PM) MPV [7.4-10.4 fL] 7.2 fL *LOW* (04/20/17 1:51 PM) Segs [45.0-75.0 %] 79.6 % *HI* (04/20/17 1:51 PM) Lymphocytes 10.5 % [20.0-40.0 %] *LOW* (04/20/17 1:51 PM) Monocytes [2.0-12.0 8.5 % %] (04/20/17 1:51 PM) Eosinophils [0.0-4.0 0.8 % %] (04/20/17 1:51 PM) Basophils [0.0-1.0 0.6 % %] (04/20/17 1:51 PM) Segs-Bands # 6.3 K/CMM [1.5-8.1 K/CMM] (04/20/17 1:51 PM) Lymphocytes # 0.8 K/CMM [1.0-5.5 K/CMM] *LOW* (04/20/17 1:51 PM) Monocytes # [0.0-0.8 0.7 K/CMM K/CMM] (04/20/17 1:51 PM) Eosinophils # 0.1 K/CMM [0.0-0.5 K/CMM] (04/20/17 1:51 PM) Macrocyte [None 1+ Seen] *ABN* (04/20/17 1:51 PM) Immunizations Given and Recorded Vaccine Date Status Refusal Reason pneumococcal 23-valent vaccine 12/01/12 Given Procedures Procedure Date Related Diagnosis Body Site Carpal tunnel release Social History Social History Type Response Smoking Status Never smoker; Ready to change: No; Concerns about tobacco use in household: No; Exposure to Tobacco Smoke None; Cigarette Smoking Last 365 Days No; Reg Smoking Cessation Counseling No Assessment and Plan No data available for this section
--- OUTSIDE RECORDS SUMMARY | 2018-07-25 20:59 | XMS REPORT | CCD ---
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 Medications Medication Instructions Start Date End Date Status DuoNeb inhalation 3 ml, Route: INHALATION, Drug Form: 09/21/2012 09/21/2012 Discontinued solution SOLN, Dosing Weight 60, kg, PRN, PRN Respiratory Protocol, Start date: 09/21/12 8:31:00, Duration: 30 day, Stop date: 10/21/12 8:30:00 albuterol 90 mcg/inh 2 puffs, INHALATION, QID, PRN, 1 09/21/2012 Ordered inhalation aerosol unit, wheezing, Substitution Allowed, Maintenance predniSONE 20 mg 60 mg, 3 tab, PO, Daily, Take 3 09/21/2012 09/26/2012 Ordered oral tablet tablets for 60 mg dose, 15 tab, Substitution Allowed Take 3 tablets for 60 mg dose methylPREDNISolone 125 mg, Route: IVP, ONCE, Dosing 09/21/2012 09/21/2012 Completed Weight 60, kg, Priority: STAT, Start date: 09/21/12 8:52:00, Stop date: 09/21/12 8:52:00 albuterol 0.083% 2.49 mg, Route: NEB, Drug form: 09/21/2012 09/21/2012 Completed inhalation solution SOLN, ONCE, Dosing Weight 60, kg, Priority: STAT, Start date: 09/21/12 9:55:00, Stop date: 09/21/12 9:55:00 DuoNeb inhalation 3 ml, Route: INHALATION, Drug Form: 09/21/2012 09/21/2012 Discontinued solution SOLN, Dosing Weight 60, kg, PRN, PRN Respiratory Protocol, Start date: 09/21/12 9:54:00, Duration: 30 day, Stop date: 10/21/12 9:53:00 DuoNeb inhalation 3 ml, Route: INHALATION, Drug Form: 09/21/2012 09/21/2012 Discontinued solution SOLN, Dosing Weight 60, kg, PRN, PRN Respiratory Protocol, Start date: 09/21/12 8:52:00, Duration: 30 day, Stop date: 10/21/12 8:51:00 Vital Signs Most recent to oldest [Reference Range]: 1 Height 152.4 cm (09/21/2012 07:52:00) Weight 60 kg (09/21/2012 07:52:00) Results CHEMISTRY Most recent to oldest [Reference Range]: 1 Sodium Lvl [135-145 mEq/L] 142 mEq/L (09/21/2012 08:20:00) Potassium Lvl [3.5-5.1 mEq/L] 3.3 mEq/L *LOW* (09/21/2012 08:20:00) Chloride Lvl [95-109 mEq/L] 105 mEq/L (09/21/2012 08:20:00) CO2 [24-32 mEq/L] 28 mEq/L (09/21/2012 08:20:00) AGAP [10.0-20.0 mEq/L] 12.3 mEq/L (09/21/2012 08:20:00) Creatinine Lvl [0.5-1.4 mg/dL] 0.5 mg/dL (09/21/2012 08:20:00) eGFR 95 mL/min/1.73m2 1 *NA* (09/21/2012 08:20:00) BUN [7-22 mg/dL] 10 mg/dL (09/21/2012 08:20:00) Glucose Lvl [70-99 mg/dL] 106 mg/dL 2 *HI* (09/21/2012 08:20:00) Calcium Lvl [8.5-10.5 mg/dL] 8.7 mg/dL (09/21/2012 08:20:00) BNP [<=100 pg/mL] 33 pg/mL 3 (09/21/2012 08:20:00) pH Art [7.35-7.45] 7.41 (09/21/2012:09:00) pCO2 Art [35-45 mmHg] 45 mmHg (09/21/2012:09:00) pO2 Art [80-100 mmHg] 62 mmHg *LOW* (09/21/2012:09:00) HCO3 Art [22-26 mMol/L] 28 mMol/L *HI* (09/21/2012 09:09:00) BE Art [-2-2 mMol/L] 3 mMol/L *HI* (09/21/2012:09:00) O2 Sat Art [95.0-100.0 %] 91.6 % *LOW* (09/21/2012:09:00) Site Art Right Ra (09/21/2012:09:00) Temp Art 37.0 DegC *NA* (09/21/2012:09:00) Allens Art Positive (09/21/2012:09:00) FiO2 Art 21.0 *NA* (09/21/2012 09:09:00) 1Result Comment: The eGFR is calculated using [...] be mul tiplied by the estimated BMI. 2Interpretive Data: Adult reference range values reflect the clinical guidelines of the [place] [employer]. 3Interpretive Data: Elevated results are in line with increasing severity of congestive heart failure. Minor elevations between 100 and 300 may be seen with Myocardial Ischemia, Sodium retaining drugs, and compensated/treated heart failure. HEMATOLOGY Most recent to oldest [Reference Range]: 1 WBC [3.7-10.4 K/CMM] 4.4 K/CMM (09/21/2012 08:20:00) RBC [4.20-5.40 M/CMM] 3.96 M/CMM *LOW* (09/21/2012 08:20:00) Hgb [12.0-16.0 g/dL] 11.8 g/dL *LOW* (09/21/2012 08:20:00) Hct [36.0-48.0 %] 36.6 % (09/21/2012 08:20:00) MCV [81.0-99.0 fL] 92.3 fL (09/21/2012 08:20:00) MCH [27.0-31.0 pg] 29.8 pg (09/21/2012 08:20:00) MCHC [32.0-36.0 g/dL] 32.3 g/dL (09/21/2012 08:20:00) RDW [11.5-14.5 %] 13.7 % (09/21/2012 08:20:00) Platelet [133-450 K/CMM] 238 K/CMM (09/21/2012 08:20:00) MPV [7.4-10.4 fL] 6.8 fL *LOW* (09/21/2012 08:20:00) Segs [45.0-75.0 %] 53.4 % (09/21/2012 08:20:00) Lymphocytes [20.0-40.0 %] 24.3 % (09/21/2012 08:20:00) Monocytes [2.0-12.0 %] 8.0 % (09/21/2012 08:20:00) Eosinophils [0.0-4.0 %] 13.4 % *HI* (09/21/2012 08:20:00) Basophils [0.0-1.0 %] 0.9 % (09/21/2012 08:20:00) Segs-Bands # [1.5-8.1 K/CMM] 2.4 K/CMM (09/21/2012 08:20:00) Lymphocytes # [1.0-5.5 K/CMM] 1.1 K/CMM (09/21/2012 08:20:00) Monocytes # [0.0-0.8 K/CMM] 0.4 K/CMM (09/21/2012 08:20:00) Eosinophils # [0.0-0.5 K/CMM] 0.6 K/CMM *HI* (09/21/2012 08:20:00) Basophils # [0.0-0.2 K/CMM] 0.0 K/CMM (09/21/2012 08:20:00)
--- OUTSIDE RECORDS SUMMARY | 2018-07-25 20:59 | XMS REPORT | CCD ---
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 Medications Medication Instructions Start Date End Date Status Xopenex 1.25 mg, Route: NEB, ONCE, Dosing 11/13/2012 11/13/2012 Completed Weight 60.909, kg, Start date: 11/13/12 20:44:00, Stop date: 11/13/12 20:44:00 DuoNeb inhalation 3 ml, Route: INHALATION, Drug Form: 11/13/2012 11/13/2012 Discontinued solution SOLN, Dosing Weight 60.909, kg, PRN, PRN Respiratory Protocol, Start date: 11/13/12 20:44:00, Duration: 30 day, Stop date: 12/13/12 20:43:00 albuterol-ipratropiu 6 mL, Route: NEB, Drug Form: SOLN, 11/13/2012 11/13/2012 Completed m 2.5-0.5 mg Dosing Weight 60.909, kg, ONCE, inhalation solution STAT, Start date: 11/13/12 19:46:00, Stop date: 11/13/12 19:46:00 methylPREDNISolone 125 mg, Route: IVP, ONCE, Dosing 11/13/2012 11/13/2012 Completed SODium SUCCinate Weight 60.909, kg, Priority: STAT, Start date: 11/13/12 19:46:00, Stop date: 11/13/12 19:46:00 Saline Flush 0.9% 5 mL, Route: IVP, Drug Form: INJ, 11/13/2012 11/13/2012 Discontinued Dosing Weight 60.909, kg, PRN, PRN Line Flush, Start date: 11/13/12 19:46:00, Duration: 30 day, Stop date: 12/13/12 19:45:00 predniSONE 20 mg 40 mg, 2 tab, PO, Daily, Take 3 11/13/2012 11/18/2012 Ordered oral tablet tablets for 60 mg dose, 10 tab, Substitution Allowed Take 3 tablets for 60 mg dose Proventil HFA 90 2 puff, INHALATION, QID, PRN, 25 11/13/2012 Ordered mcg/inh inhalation gm, for wheezing, Substitution aerosol with adapter Allowed, Maintenance, AERO Vital Signs Most recent to oldest [Reference Range]: 1 Height 142.24 cm (11/13/2012 19:39:00) Weight 60.909 kg (11/13/2012 19:39:00) Results URINALYSIS Most recent to oldest [Reference Range]: 1 UA Turbidity [Clear] Clear (11/13/2012 20:00:00) UA Color Ltyellow *NA* (11/13/2012 20:00:00) UA pH [5.0-8.0] 7.0 (11/13/2012 20:00:00) UA Spec Grav [<=1.030] 1.010 (11/13/2012 20:00:00) UA Glucose [Negative mg/dL] Negative mg/dL *NA* (11/13/2012 20:00:00) UA Blood [Negative] Negative (11/13/2012 20:00:00) UA Ketones [Negative mg/dL] Negative mg/dL *NA* (11/13/2012 20:00:00) UA Protein [Negative mg/dL] Negative mg/dL (11/13/2012 20:00:00) UA Urobilinogen [0.1-1.0 mg/dL] <=1.0 mg/dL *NA* (11/13/2012 20:00:00) UA Bili [Negative] Negative *NA* (11/13/2012 20:00:00) UA Leuk Est [Negative] Negative (11/13/2012 20:00:00) UA Nitrite [Negative] Negative (11/13/2012 20:00:00) UA WBC [0-5 /HPF] 1 /HPF (11/13/2012 20:00:00) UA RBC [0-2 /HPF] <1 /HPF (11/13/2012 20:00:00) UA Sq Epi [Few /LPF] Occasional /LPF *NA* (11/13/2012:00:00) CHEMISTRY Most recent to oldest [Reference Range]: 1 Sodium Lvl [135-145 mEq/L] 145 mEq/L (11/13/2012 20:02:00) Potassium Lvl [3.5-5.1 mEq/L] 3.4 mEq/L *LOW* (11/13/2012:02:00) Chloride Lvl [95-109 mEq/L] 107 mEq/L (11/13/2012:02:00) CO2 [24-32 mEq/L] 27 mEq/L (11/13/2012:02:00) AGAP [10.0-20.0 mEq/L] 14.4 mEq/L (11/13/2012:02:00) Creatinine Lvl [0.5-1.4 mg/dL] 0.6 mg/dL (11/13/2012:02:00) eGFR 89 mL/min/1.73m2 1 *NA* (11/13/2012 20:02:00) BUN [7-22 mg/dL] 13 mg/dL (11/13/2012:02:00) B/C Ratio [6-25] 22 (11/13/2012 20:02:00) Glucose Lvl [70-99 mg/dL] 100 mg/dL 2 *HI* (11/13/2012:02:00) Total Protein [6.4-8.4 g/dL] 7.7 g/dL (11/13/2012:02:00) Albumin Lvl [3.5-5.0 g/dL] 3.9 g/dL (11/13/2012 20:02:00) Globulin [2.0-4.0 g/dL] 3.8 g/dL (11/13/2012:02:00) A/G Ratio [0.7-1.6] 1.0 (11/13/2012:02:00) Calcium Lvl [8.5-10.5 mg/dL] 8.9 mg/dL (11/13/2012::00) ALT [0-65 unit/L] 19 unit/L (11/13/2012:02:00) AST [0-37 unit/L] 21 unit/L (11/13/2012:02:00) Alk Phos [39-136 unit/L] 132 unit/L (11/13/2012:02:00) Bili Total [0.2-1.3 mg/dL] <0.1 mg/dL *LOW* (11/13/2012:02:00) 1Result Comment: The eGFR is calculated using [...] values reflect the clinical guidelines of the [place] [employer]. HEMATOLOGY Most recent to oldest [Reference Range]: 1 WBC [3.7-10.4 K/CMM] 4.7 K/CMM (11/13/2012:02:00) RBC [4.20-5.40 M/CMM] 4.00 M/CMM *LOW* (11/13/2012::00) Hgb [12.0-16.0 g/dL] 11.4 g/dL *LOW* (11/13/2012::00) Hct [36.0-48.0 %] 35.5 % *LOW* (11/13/201202:00) MCV [81.0-99.0 fL] 88.9 fL (11/13/2012:02:00) MCH [27.0-31.0 pg] 28.4 pg (11/13/2012 20:02:00) MCHC [32.0-36.0 g/dL] 31.9 g/dL *LOW* (11/13/2012 20:02:00) RDW [11.5-14.5 %] 14.8 % *HI* (11/13/2012 20:02:00) Platelet [133-450 K/CMM] 247 K/CMM (11/13/2012 20:02:00) MPV [7.4-10.4 fL] 6.9 fL *LOW* (11/13/2012 20:02:00) Segs [45.0-75.0 %] 44.2 % *LOW* (11/13/2012:02:00) Lymphocytes [20.0-40.0 %] 26.4 % (11/13/2012 20:02:00) Monocytes [2.0-12.0 %] 10.3 % (11/13/2012 20:02:00) Eosinophils [0.0-4.0 %] 18.4 % *HI* (11/13/2012 20:02:00) Basophils [0.0-1.0 %] 0.7 % (11/13/2012 20:02:00) Segs-Bands # [1.5-8.1 K/CMM] 2.1 K/CMM (11/13/2012 20:02:00) Lymphocytes # [1.0-5.5 K/CMM] 1.3 K/CMM (11/13/2012 20:02:00) Monocytes # [0.0-0.8 K/CMM] 0.5 K/CMM (11/13/2012 20:02:00) Eosinophils # [0.0-0.5 K/CMM] 0.9 K/CMM *HI* (11/13/2012 20:02:00) Basophils # [0.0-0.2 K/CMM] 0.0 K/CMM (11/13/2012 20:02:00)
--- OUTSIDE RECORDS SUMMARY | 2018-07-25 20:59 | XMS REPORT ---
Author Author Admin, [place] Organization [facility] Address [address] [address] Phone Allergies, Adverse Reactions, Alerts Allergy Name Reaction Description Start Date Severity Status Provider No Known Allergies Fredi Stokes DDS Conditions or Problems Problem Name Problem Code Onset Date Status Entry Date Provider Comment Standard Description Annotate Problems Unknown Medication List Medication Instructions Start Date Stop Date Generic Name NDC Status Provider Patient Instruction CARBAMAZEPINE 200 MG ORAL TABLET CARBAMAZEPINE 89114664842 Active Fredi Stokes DDS Active COUMADIN 4 MG ORAL TABLET WARFARIN SODIUM 00225721913 Active Fredi Stokes DDS Active COZAAR 25 MG ORAL TABLET LOSARTAN POTASSIUM 37397608734 Active Fredi Stokes DDS Active DONEPEZIL HCL 10 MG ORAL TABLET DONEPEZIL HCL 31018040313 Active Fredi Stokes DDS Active FOSAMAX 70 MG ORAL TABLET ALENDRONATE SODIUM 25037358161 Active Fredi Stokes DDS Active LEVOTHYROXINE SODIUM 50 MCG ORAL TABLET One tab by mouth daily LEVOTHYROXINE SODIUM 73374436167 Active Fredi Stokes DDS Active NAMENDA XR 21 MG ORAL CAPSULE EXTENDED RELEASE 24 HOUR MEMANTINE HCL 19885289525 Active Fredi Stokes DDS Active NEXIUM 40 MG ORAL CAPSULE DELAYED RELEASE 1 by mouth daily ESOMEPRAZOLE MAGNESIUM 76361476545 Active Fredi Stokes DDS Active SYMBICORT AEROSOL BUDESONIDE-FORMOTEROL FUMARATE AERO 02044507624 Active Fredi Stokes DDS Active IBUPROFEN 800 MG ORAL TABLET 1 by mouth every 8 hours as needed IBUPROFEN 27764950532 Active Fredi Stokes DDS Active
--- NOTE | 2018-07-25 22:03 | Diagnostic Imaging Report ---
EXAMINATION: CHEST 2 VIEWS INDICATION: ^cough COMPARISON: None FINDINGS: PA and lateral views TUBES and LINES: None. LUNGS: Lungs are hyper inflated. Lungs are clear. There is no evidence of pneumonia or pulmonary edema. PLEURA: No pleural effusion or pneumothorax. HEART AND MEDIASTINUM: The cardiomediastinal silhouette is unremarkable. BONES AND SOFT TISSUES: There are degenerative changes in the thoracic spine. 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 Soft tissues are unremarkable. UPPER ABDOMEN: No free air under the diaphragm. Small to moderate sliding hiatal hernia. IMPRESSION: 1. Hyperinflated lungs consistent with emphysema. No significant peribronchial cuffing. No consolidative pneumonia. 2. Small to moderate sliding hiatal hernia. 3. 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 Signed by: Dr. Bill Ross M.D. on 07/25/2018 10:00 PM
== END 2018-07-25 23:05 | disposition home or self-care (01) ==
LOC: ER 20:53
DX: J45.31 Mild persistent asthma with (acute) exacerbation (principal); E03.9 Hypothyroidism, unspecified; K44.9 Diaphragmatic hernia without obstruction or gangrene; F03.90 Unspecified dementia, unspecified severity, without behavioral disturbance, psychotic disturbance, mood disturbance, and anxiety; M87.822 Other osteonecrosis, left humerus; M87.821 Other osteonecrosis, right humerus; Z79.82 Long term (current) use of aspirin
CPT/HCPCS: 71046; 99283